=== PATIENT | male | born 1965 | race Caucasian/White ===

== ENCOUNTER 2023-11-27 10:14 | Inpatient (IN) | payer OTHER ==
[2023-11-27 11:19] LABS: Basophils % (A) 0 %; Eosinophils # (A) 0.1 k/uL (0-0.7); Eosinophils % (A) 0 %; HCT 40.3 % (39.0-53.0); HGB 12.9 gm/dL (13.0-17.5); Lymphocytes # (A) 0.5 k/uL (1.0-4.8); Lymphocytes % (A) 3 %; MCH 32.9 pg (25.0-35.0); MCHC 32.1 g/dL (31.0-37.0); MCV 102.6 fL (80.0-100.0); Macrocytosis Slight; Mean Platelet Volume 9.7; Monocytes # (A) 0.5 k/uL (0-1.0); Monocytes % (A) 2 %; Neutrophils # (A) 18.5 k/uL (1.3-7.7); Neutrophils % (A) 94 %; Platelet Count 322 k/uL (150-450); RBC 3.93 m/uL (4.30-5.90); RDW 14.1 % (11.5-15.5); WBC 19.6 k/uL (3.8-10.6)
[2023-11-27] MEDS: ACETAMINOPHEN TAB 500 MG TAB PO STA (11:25)
[2023-11-27] MEDS: IBUPROFEN 600 MG TAB PO STA (11:25)
--- NOTE | 2023-11-27 11:26 | XR ---
EXAMINATION TYPE: XR chest 2V DATE OF EXAM: 11/27/2023 COMPARISON: NONE HISTORY: Fever TECHNIQUE: Frontal and lateral views of the chest are obtained. FINDINGS: In the left upper lobe there is a 2.9 cm round masslike opacity. This could indicate a round focal pn eumonia but neoplastic mass is not excluded. The left hilum is prominent and the possibility of hilar mass or adenopathy should be further evaluated. There is a partially consolidative opacity in the left lower lobe with small left effusion likely ind icating a pneumonic infiltrate. Right lung is clear. The heart and pulmonary vasculature are normal. The osseous structures are grossly intact. IMPRESSION: 1. Left lower lobe consolidative infiltrate and small effusion consistent with pneumonia. 2. 2.9 cm focal rounded opacity left upper lobe for which neoplasm is not excluded. Left hilum is pro minent raising the question of hilar mass or adenopathy. Further evaluation with CT is indicated. [facility], Workstation: [id number] 11/27/2023 11:23 AM
[2023-11-27] MEDS: SODIUM CHLORIDE 0.9% 1,000 ML IV STA ×3 (11:27→13:28)
[2023-11-27] MEDS ORDERED: PNEUMONIA PROTOCOL UTILIZED 1 EACH MISC PO PRN (11:34)
[2023-11-27 12:35] LABS: ALT 75 U/L (4-49); AST 137 U/L (17-59); African American GFR (CKD) >90 (>60 ml/min/1.73 sqM); Albumin 2.6 g/dL (3.5-5.0); Alkaline Phosphatase 488 U/L (38-126); Anion Gap 10 mmol/L; Blood Urea Nitrogen 27 mg/dL (9-20); Calcium 7.8 mg/dL (8.4-10.2); Carbon Dioxide 18 mmol/L (22-30); Chloride 99 mmol/L (98-107); Glucose 201 mg/dL (74-99); Non-African American GFR(CKD) 83 (>60 ml/min/1.73 sqM); Potassium 4.1 mmol/L (3.5-5.1); Sodium 127 mmol/L (137-145); Total Bilirubin 4.7 mg/dL (0.2-1.3); Total Protein 5.1 g/dL (6.3-8.2)
[2023-11-27] MEDS ORDERED: LORazepam 2 MG/ML INJ IV PRN ×2 (13:04)
[2023-11-27] MEDS ORDERED: ONDANSETRON 4 MG/2 ML VIAL IVP PRN (13:05)
[2023-11-27] MEDS ORDERED: ACETAMINOPHEN TAB 325 MG TAB PO PRN (13:05)
[2023-11-27] MEDS ORDERED: IBUPROFEN 400 MG TAB PO PRN (13:05)
[2023-11-27] MEDS ORDERED: NALOXONE 0.4 MG/ML 1 ML VIAL IV PRN (13:05)
--- NOTE | 2023-11-27 13:08 | ED ---
General Adult HPI - General Chief complaint: Fever Stated complaint: Heart palpitations, loss of voice Time Seen by Provider: 11/27/23 10:45 Source: patient, RN notes reviewed, old records reviewed Mode of arrival: ambulatory Limitations: no limitations - History of Present Illness Initial comments: Patient is a 57-year-old male who presents emergency department complaining of a fever. Patient has also been complaining of loss of voice. Was found to be febrile in triage with a fever of 101.2. Was tachycardic to 129. Denies any significant cough or chest pain. Denies abdominal pain, nausea, vomiting. Is a daily drinker. Has not gone through alcohol withdrawals in the past. Denies urinary complaints. Has no other acute complaints at this time. Presents for further evaluation. Patient also smokes tobacco on a regular basis. States he has never gone through alcohol withdrawals. - Related Data Home Medications Medication Instructions Recorded Confirmed No Known Home Medications 11/27/23 11/27/23 Allergies Allergy/AdvReac Type Severity Reaction Status Date / Time No Known Allergies Allergy Verified 11/27/23 14:24 Review of Systems ROS Statement: Those systems with pertinent positive or pertinent negative responses have been documented in the HPI. Review of Systems: CONST: Endorses fever EYES: Denies blurry vision ENT: Denies nasal congestion C/V: Endorses tachycardia RESP: Denies shortness of breath GI: Denies abdominal pain : Denies dysuria SKIN: Denies rash. MSK: Denies joint pain. NEURO: Denies headache ROS Other: All systems not noted in ROS Statement are negative. Past Medical History Past Medical History: No Reported History History of Any Multi-Drug Resistant Organisms: None Reported Past Surgical History: No Surgical Hx Reported Past Psychological History: No Psychological Hx Reported Smoking Status: Current every day smoker Past Alcohol Use History: Daily Past Drug Use History: None Reported General Exam - General Exam Comments Initial Comments: General: Febrile. Tachycardic. HEAD: Normal with no signs of head trauma. EYES: PERRLA, EOMI, conjunctiva normal, no discharge. ENT: Hearing grossly intact, normal oropharynx. RESPIRATORY: Coarse breath sounds over the left lung field. C/V: Tachycardic with regular rhythm.. S1 and S2 auscultated, no edema, peripheral pulses 2+ and intact throughout ABD: Abd is soft, nontender, nondistended EXT: Normal range of motion, no obvious deformity SKIN: No rashes or lesions observed on exposed skin. NEURO: Alert and oriented x 4. No significant tremors or tongue fasciculations at this time. Limitations: no limitations Course Vital Signs 11/27/23 11/27/23 10:21 12:23 Temperature 101.2 F H 99.3 F Pulse Rate 129 H 118 H Respiratory 24 22 Rate Blood Pressure 138/91 138/100 O2 Sat by Pulse 97 94 L Oximetry Medical Decision Making - Medical Decision Making Was pt. sent in by a medical professional or institution (, PA, NURSERY NURSE, urgent care, hospital, or residential...) When possible be specific @ -No Did you speak to anyone other than the patient for history (EMS, parent, family, police, friend...)? What history was obtained from this source @ -No Did you review nursing and triage notes (agree or disagree)? Why? @ -I reviewed and agree with nursing and triage notes Were old charts reviewed (outside hosp., previous admission, EMS record, old EKG, old radiological studies, urgent care reports/EKG's, residential records)? Report findings @ -No old charts were reviewed Differential Diagnosis (chest pain, altered mental status, abdominal pain women, abdominal pain men, vaginal bleeding, weakness, fever, dyspnea, syncope, headache, dizziness, GI bleed, back pain, seizure, CVA, palpatations, mental health, musculoskeletal)? @ -Differential Fever: Pneumonia, viral URI, endocarditis, myocarditis, pericarditis, otitis, sinusitis, peritonsillar Abscess, retropharyngeal Abscess, epiglottitis, peritonitis, appendicitis, Olga cystitis, diverticulitis, hepatitis, colitis, UTI, PID, TOA, pyelonephritis, prostatitis, epididymitis, meningitis, encephalitis, pulmonary embolism, CVA, thyroid storm, pancreatitis, adrenal crisis, cavernous sinus thrombosis, this is not meant to be an all-inclusive list. EKG interpreted by me (3pts min.). @ -As above X-rays interpreted by me (1pt min.). @ -Chest x-ray reveals a left lower lobe pneumonia with pleural effusion likely from the pneumonic infiltrate. Patient also has concerning findings for a lung mass in the left upper lobe versus pneumonia. CT interpreted by me (1pt min.). @ -None done U/S interpreted by me (1pt. min.). @ -None done What testing was considered but not performed or refused? (CT, X-rays, U/S, labs)? Why? @ -None What meds were considered but not given or refused? Why? @ -None Did you discuss the management of the patient with other professionals (professionals i.e. DrKaron, PA, NURSERY NURSE, lab, RT, psych nurse, health social work professor, enterprise application administrator, teacher, recreation officer, case operator)? Give summary @ -Discussed with Dr. Gibbs who accepted the admission. Was smoking cessation discussed for >3mins.? @ -No Was critical care preformed (if so, how long)? @ -Yes, 38 minutes. Were there social determinants of health that impacted care today? How? (Homelessness, low income, unemployed, alcoholism, drug addiction, transportation, low edu. Level, literacy, decrease access to med. care, prison, rehab)? @ -No Was there de-escalation of care discussed even if they declined (Discuss DNR or withdrawal of care, Hospice)? DNR status @ -No What co-morbidities impacted this encounter? (DM, HTN, Smoking, COPD, CAD, Cancer, CVA, ARF, Chemo, Hep., AIDS, mental health diagnosis, sleep apnea, morbid obesity)? @ -None Was patient admitted / discharged? Hospital course, mention meds given and route, prescriptions, significant lab abnormalities, going to OR and other pertinent info. @ -Based on the patient's presentation and physical exam, I am concerned for in fectious etiology treated for the patient considering his high fever and tachycardia. May have mild alcohol withdrawal symptoms at this time however I am more concerned for infectious. He will be symptomatically treated with antipyretics and IV fluids. We will obtain infectious workup. Patient was in agreement this plan. EKG showed no signs of acute ischemia. Chest x-ray does show left-sided pneumonia as well as a possible left upper lung mass. Patient's labs remarkable for leukocytosis of 19.6 lactic acidosis of 4.3, mild hyponatremia of 127. Patient also has some elevated LFTs and alk phos likely chronic secondary to patient's chronic alcohol use. No prior labs for comparison. Patient met sepsis criteria at 1133. Patient was placed on Rocephin and azithromycin for septic pneumonia. Blood culture obtained and sent. Patient will receive 1 L fluid bolus and we will continue with an additional liter as well as IV maintenance fluids to complete the 30 cc/kg fluid requirement. Vital signs are within acceptable limits. Patient's fever broke. I updated the patient. He initially refuses admission. I did heavily advise admission and informed him of the serious of his condition. He agreed to think about it. On reevaluation, he did consent to admission at this time. We will continue with admission for the IV antibiotics. He does have the nonspecific elevations in the hepatobiliary labs however I do believe this is likely chronic from chronic alcohol use and we will obtain screening ultrasound of the gallbladder at this time. He was in agreement this plan. I spoke with the admitting provider, Dr. Gibbs who accepted the admission. Gallbladder ultrasound still pending at time of admission. Pulmonology consulted for the pneumonia as well as the mass on x-ray. There is concern for early alcohol withdrawals and patient was placed on CIWA protocol. Undiagnosed new problem with uncertain prognosis? @ -No Drug Therapy requiring intensive monitoring for toxicity (Heparin, Nitro, Insulin, Cardizem)? @ -No Were any procedures done? @ -No Diagnosis/symptom? @ -Sepsis secondary to pneumonia, lung mass, alcohol withdrawals Acute, or Chronic, or Acute on Chronic? @ -Acute Uncomplicated (without systemic symptoms) or Complicated (systemic symptoms)? @ -Complicated Side effects of treatment? @ -No Exacerbation, Progression, or Severe Exacerbation? @ -No Poses a threat to life or bodily function? How? (Chest pain, [place], [place], pneumonia, PE, COPD, DKA, ARF, appy, cholecystitis, CVA, Diverticulitis, Homicidal, Suicidal, threat to staff... and all critical care pts) @ -Yes - Lab Data Result diagrams: 11/27/23 11:12 11/27/23 12:11 Lab Results 11/27/23 11/27/23 11/27/23 Range/Units 11:12 11:12 11:12 WBC 19.6 H (3.8-10.6) k/uL RBC 3.93 L (4.30-5.90) m/uL Hgb 12.9 L (13.0-17.5) gm/dL Hct 40.3 (39.0-53.0) % MCV 102.6 H (80.0-100.0) fL MCH 32.9 (25.0-35.0) pg MCHC 32.1 (31.0-37.0) g/dL RDW 14.1 (11.5-15.5) % Plt Count 322 (150-450) k/uL MPV 9.7 Neutrophils % 94 % Lymphocytes % 3 % Monocytes % 2 % Eosinophils % 0 % Basophils % 0 % Neutrophils # 18.5 H (1.3-7.7) k/uL Lymphocytes # 0.5 L (1.0-4.8) k/uL Monocytes # 0.5 (0-1.0) k/uL Eosinophils # 0.1 (0-0.7) k/uL Basophils # 0.0 (0-0.2) k/uL Macrocytosis Slight Sodium (137-145) mmol/L Potassium (3.5-5.1) mmol/L Chloride (98-107) mmol/L Carbon Dioxide (22-30) mmol/L Anion Gap mmol/L BUN (9-20) mg/dL Creatinine (0.66-1.25) mg/dL Est GFR (CKD-EPI)AfAm (>60 ml/min/1.73 sqM) Est GFR (CKD-EPI)NonAf (>60 ml/min/1.73 sqM) Glucose (74-99) mg/dL Lactic Ac Sepsis Rflx Plasma Lactic Acid George 4.3 H* (0.7-2.0) mmol/L Calcium (8.4-10.2) mg/dL Total Bilirubin (0.2-1.3) mg/dL AST (17-59) U/L ALT (4-49) U/L Alkaline Phosphatase (38-126) U/L Total Protein (6.3-8.2) g/dL Albumin (3.5-5.0) g/dL Influenza Type A (PCR) (Not Detectd) Influenza Type B (PCR) (Not Detectd) RSV (PCR) (Not Detectd) SARS-CoV-2 (PCR) (Not Detectd) Group A Strep (PCR) NOT DETECTED (Not Detectd) 11/27/23 11/27/23 11/27/23 Range/Units 11:12 11:39 12:11 WBC (3.8-10.6) k/uL RBC (4.30-5.90) m/uL Hgb (13.0-17.5) gm/dL Hct (39.0-53.0) % MCV (80.0-100.0) fL MCH (25.0-35.0) pg MCHC (31.0-37.0) g/dL RDW (11.5-15.5) % Plt Count (150-450) k/uL MPV Neutrophils % % Lymphocytes % % Monocytes % % Eosinophils % % Basophils % % Neutrophils # (1.3-7.7) k/uL Lymphocytes # (1.0-4.8) k/uL Monocytes # (0-1.0) k/uL Eosinophils # (0-0.7) k/uL Basophils # (0-0.2) k/uL Macrocytosis Sodium 127 L (137-145) mmol/L Potassium 4.1 (3.5-5.1) mmol/L Chloride 99 (98-107) mmol/L Carbon Dioxide 18 L (22-30) mmol/L Anion Gap 10 mmol/L BUN 27 H (9-20) mg/dL Creatinine 1.00 (0.66-1.25) mg/dL Est GFR (CKD-EPI)AfAm >90 (>60 ml/min/1.73 sqM) Est GFR (CKD-EPI)NonAf 83 (>60 ml/min/1.73 sqM) Glucose 201 H (74-99) mg/dL Lactic Ac Sepsis Rflx Y Plasma Lactic Acid George (0.7-2.0) mmol/L Calcium 7.8 L (8.4-10.2) mg/dL Total Bilirubin 4.7 H (0.2-1.3) mg/dL AST 137 H (17-59) U/L ALT 75 H (4-49) U/L Alkaline Phosphatase 488 H (38-126) U/L Total Protein 5.1 L (6.3-8.2) g/dL Albumin 2.6 L (3.5-5.0) g/dL Influenza Type A (PCR) Not Detected (Not Detectd) Influenza Type B (PCR) Not Detected (Not Detectd) RSV (PCR) Not Detected (Not Detectd) SARS-CoV-2 (PCR) Not Detected (Not Detectd) Group A Strep (PCR) (Not Detectd) - EKG Data -: EKG Interpreted by Me EKG Comments: 12-lead Electrocardiogram Interpretation Note EKG was reviewed and interpreted by myself. 12-lead ECG performed at 1120 is interpreted by me as revealing tachycardia at a rate of 127 beats per minute. [place] is normal. [place] interval is 169 ms, QRS duration is 91 ms, QTc is 357 ms.. There were no ST or T wave abnormalities to suggest myocardial ischemia or injury. R wave progression across the precordium was satisfactory. By my interpretation this EKG is non-diagnostic for acute ischemia. Critical Care Time Critical Care Time: Yes Total Critical Care Time: 38 Disposition Clinical Impression: Sepsis, Pneumonia, Lung mass, Alcohol withdrawal Disposition: ADMITTED IP TO THIS [facility] Condition: Serious Time of Disposition: 13:00
[2023-11-27] MEDS: LORazepam 2 MG/ML INJ IV STA (13:22)
[2023-11-27] MEDS: THIAMINE 100 MG/ML 2 ML VIAL IM STA (13:30)
[2023-11-27] MEDS: AZITHROMYCIN 500 MG in SODIUM CHLORIDE 0.9% 250 ML IVPB STA (13:30)
--- NOTE | 2023-11-27 14:23 | P.HPIM ---
History of Present Illness This is a pleasant 57 years old male with past medical history of multiple medical problems, he has a history of alcohol use disorder is non-smoker He presents because of fever and sweating Of 1 day duration. He is complaining from little dyspnea but states he has been coughing with little yellow phlegm for about 1 to 2 weeks He denies abdominal pain vomiting or diarrhea, no urinary complaints, no headache dizziness weakness or numbness He smokes 1 pack/day and he was counseled to quit but he does not want to quit and he denies nicotine patch. He drinks 7 to 8 cans of beer of 12 ounces each day. He uses marijuana at times He denies current signs symptoms of depression, suicidal or homicidal ideation On admission he has been having fever 101.2, he is tachycardic 118, he is breathing around 22-24, he was saturating 94% on room air He has leukocytosis of 19,000, hemoglobin 12.9, sodium 127, liver enzymes mildly elevated but bilirubin is 4.7 Troponin is negative, INR is unremarkable Influenza A and type B, RSV, SARS (coronavirus) are and detected Group B streptococcus is negative Chest x-ray reviewed by myself and per radiologist shows 2.9 cm left upper lung nodule with left hilar fullness suspicious for neoplasm versus pneumonia Review of Systems Review of systems CONSTITUTIONAL: No fever, no malaise, no fatigue. HEENT: No recent visual problems or hearing problems. Denied any sore throat. CARDIOVASCULAR: No orthopnea, PND, no palpitations, no syncope. PULMONARY: No chest wall tenderness, no hemoptysis. GASTROINTESTINAL: No diarrhea, no nausea, no vomiting, no abdominal pain. Normoactive bowel sounds. NEUROLOGICAL: No headaches, no weakness, no numbness. HEMATOLOGICAL: Denies any bleeding or petechiae. GENITOURINARY: Denies any burning micturition, frequency, or urgency. MUSCULOSKELETAL/RHEUMATOLOGICAL: Denies any joint pain, swelling, or any muscle pain. ENDOCRINE: Denies any polyuria or polydipsia. Past Medical History Past Medical History: No Reported History History of Any Multi-Drug Resistant Organisms: None Reported Past Surgical History: No Surgical Hx Reported Past Psychological History: No Psychological Hx Reported Smoking Status: Current every day smoker Past Alcohol Use History: Daily Past Drug Use History: None Reported Medications and Allergies Allergies Allergy/AdvReac Type Severity Reaction Status Date / Time No Known Allergies Allergy Verified 11/27/23 10:24 Physical Exam Vitals: Vital Signs Temp Pulse Resp BP Pulse Ox 11/27/23 12:23 99.3 F 118 H 22 138/100 94 L 11/27/23 10:21 101.2 F H 129 H 24 138/91 97 Intake and Output 11/26/23 11/27/23 11/27/23 22:59 06:59 14:59 Other: Weight 89.811 kg -GENERAL: The patient is alert and oriented x3, not in any acute distress. Well developed, well nourished. HEENT: Pupils are round and equally reacting to light. EOMI. No scleral icterus. No conjunctival pallor. Normocephalic, atraumatic. No pharyngeal erythema. No thyromegaly. CARDIOVASCULAR: S1 and S2 present. No murmurs, rubs, or gallops. PULMONARY: Chest is clear to auscultation, no wheezing , no crackles. ABDOMEN: Soft, nontender, nondistended, normoactive bowel sounds. No palpable organomegaly. MUSCULOSKELETAL: No joint swelling or deformity. EXTREMITIES: No cyanosis, clubbing, or pedal edema. NEUROLOGICAL: Gross neurological examination did not reveal any focal deficits. SKIN: No rashes. no petechiae. Results CBC & Chem 7: 11/27/23 11:12 11/27/23 12:11 Labs: Abnormal Lab Results - Last 24 Hours (Table) 11/27/23 11/27/23 11/27/23 Range/Units 11:12 11:12 12:11 WBC 19.6 H (3.8-10.6) k/uL RBC 3.93 L (4.30-5.90) m/uL Hgb 12.9 L (13.0-17.5) gm/dL MCV 102.6 H (80.0-100.0) fL Neutrophils # 18.5 H (1.3-7.7) k/uL Lymphocytes # 0.5 L (1.0-4.8) k/uL Sodium 127 L (137-145) mmol/L Carbon Dioxide 18 L (22-30) mmol/L BUN 27 H (9-20) mg/dL Glucose 201 H (74-99) mg/dL Plasma Lactic Acid George 4.3 H* (0.7-2.0) mmol/L Calcium 7.8 L (8.4-10.2) mg/dL Total Bilirubin 4.7 H (0.2-1.3) mg/dL AST 137 H (17-59) U/L ALT 75 H (4-49) U/L Alkaline Phosphatase 488 H (38-126) U/L Total Protein 5.1 L (6.3-8.2) g/dL Albumin 2.6 L (3.5-5.0) g/dL Assessment and Plan Assessment: Sepsis secondary to community-acquired pneumonia with left upper lobe nodule/mass 2.9 cm, cannot rule out neoplasm especially with there is fullness in the left hilum Hypovolemic hyponatremia Transaminitis with elevated bilirubin, rule out hepatobiliary disease. However most likely this is due to alcoholic transaminitis Nicotine dependence Alcohol use disorder at risk of alcohol withdrawal Substance abuse with marijuana Plan: Continue Zithromax and ceftriaxone Follow-up culture results Continue with CIWA and thiamine pulmonary consult Continue with gentle hydration 100 mL/h, he received several boluses in the ER Labs and medication were reviewed.. Continue same treatment. Continue with s ymptomatic treatment. Resume home medication. Monitor labs and vitals. DVT and GI prophylaxis. Further recommendations as per clinical course of the patient DVT prophylaxis: Subcutaneous heparin GI Prophylaxis: Pepcid PT/OT: Pending Prognosis is guarded
[2023-11-27] MEDS: SODIUM CHLORIDE 0.9% 1,000 ML IV SCH (15:16)
--- NOTE | 2023-11-27 15:50 | US ---
EXAMINATION TYPE: US gallbladder DATE OF EXAM: 11/27/2023 COMPARISON: NONE CLINICAL INDICATION: Male, 57 years old with history of pain; Hx alcohol abuse per pt. Pt c/o recent loss of voice, fever TECHNIQUE: Multiple sonographic images of the right upper quadrant are obtained. FINDINGS: EXAM MEASUREMENTS: Liver Length: 23.9 cm Gallbladder Wall: 0.3 cm CBD: 0.3 cm Right Kidney: 10.3 x 6.1 x 5.1 cm [employer] NOTES: Pancreas: Obscured by bowel gas Liver: Many nodular masses noted throughout both lobes of the liver Gallbladder: No stones seen Evidence for sonographic Barton's sign: No CBD: Appears wnl as visualized Right Kidney: wnl Small amount of ascites noted within the right abdomen near the liver IMPRESSION: Enlarged liver containing multiple masses, highly concerning for metastases. [facility], , 11/27/2023 3:48 PM
[2023-11-27] MEDS ORDERED: RX INFO: IV CONTRAST WAS GIVEN 1 EACH MISC MISCELLANE PRN (16:33)
[2023-11-27] MEDS: methylPREDNISolone SOD SUCCI 125 MG/2 ML VIAL IV SCH (18:44)
--- NOTE | 2023-11-27 18:50 | P.CNPUL ---
History of Present Illness Consult date: 11/27/23 Reason for consult: dyspnea, COPD, pneumonia History of present illness: 57-year-old male patient, presented to the emergency department because of fever and sweating and shortness of breath. He also was having cough with yellow sputum production for the past few days. No nausea. No vomiting. Abdominal pain. He is a chronic smoker. He also drinks around 7 to 8, 12 ounce cans beers on a daily basis and he smokes marijuana occasionally. In the emergency, the patient was found to be febrile with a Tmax of 101.2. He was tachycardic and tachypneic with a pulse ox of 94% room air oxygen. White cell count was at 19. The viral screen showed negative influenza RSV and COVID-19 and the strep screen was also negative. The patient's chest x-ray showed a area of left lower lobe consolidation with a small effusion. There was another 2.9 cm focus in the left upper lobe that was concerning for neoplasm and based on the CAT scan of the chest was recommended. The patient is currently on a combination of Rocephin and Zithromax. Patient is on normal citrate of 130 cc an hour. Calm and comfortable. Hemodynamically stable. Still on room air oxygen with a pulse ox of 95%. The patient is a chronic smoker and history of smoking at the young age and the patient smokes around 1 pack of cigarettes on a daily basis. Review of Systems Constitutional: Reports fatigue Eyes: denies as per HPI, denies blurred vision, denies bulging eye, denies decreased vision, denies diplopia, denies discharge, denies dry eye, denies irritation, denies itching, denies pain, denies photophobia, denies loss of peripheral vision, denies loss of vision, denies tunnel vision/blind spots Ears: deny: decreased hearing, ear discharge, earache, tinnitus Ears, nose, mouth and throat: Reports as per HPI Breasts: absent: as per HPI, gynecomastia Cardiovascular: Reports dyspnea on exertion Respiratory: Reports dyspnea, Reports wheezing Gastrointestinal: Reports as per HPI Genitourinary: Reports as per HPI Musculoskeletal: Reports as per HPI Musculoskeletal: absent: ankle pain, ankle stiffness, ankle swelling, as per HPI, elbow pain, elbow stiffness, elbow swelling, foot pain, foot stiffness, foot swelling, hand pain, hand stiffness, hand swelling, hip pain, hip stiffness, hip swelling, knee pain, knee stiffness, knee swelling, shoulder pain, shoulder stiffness, shoulder swelling, wrist pain, wrist stiffness, wrist swelling Integumentary: Reports as per HPI Neurological: Reports as per HPI Psychiatric: Reports as per HPI Endocrine: Reports as per HPI Hematologic/Lymphatic: Reports as per HPI Allergic/Immunologic: Reports as per HPI Past Medical History Past Medical History: No Reported History History of Any Multi-Drug Resistant Organisms: None Reported Past Surgical History: No Surgical Hx Reported Past Psychological History: No Psychological Hx Reported Smoking Status: Current every day smoker Past Alcohol Use History: Daily Past Drug Use History: None Reported Medications and Allergies Home Medications Medication Instructions Recorded Confirmed Type No Known Home Medications 11/27/23 11/27/23 History Allergies Allergy/AdvReac Type Severity Reaction Status Date / Time No Known Allergies Allergy Verified 11/27/23 14:24 Physical Exam Vitals: Vital Signs Temp Pulse Resp BP Pulse Ox 11/27/23 15:17 97.6 F 82 16 120/90 95 11/27/23 12:23 99.3 F 118 H 22 138/100 94 L 11/27/23 10:21 101.2 F H 129 H 24 138/91 97 Intake and Output 11/27/23 11/27/23 11/27/23 06:59 14:59 22:59 Other: Weight 89.811 kg The patient appeared well nourished and normally developed. Vital signs as documented. Patient currently on room air oxygen, breathing is mildly labored Head exam is unremarkable. No scleral icterus or corneal arcus noted. Neck is without jugular venous distension, thyromegaly, or carotid bruits. Carotid upstrokes are brisk bilaterally. Lungs are diminished breath sound bilaterally along with diffuse expiratory wheezes throughout the lung torres and prolongation of the exhalation phase of breathing Cardiac exam reveals the PMI to be normally sized and situated. Rhythm is regular. First and second heart sounds normal. No murmurs, rubs or gallops. Abdominal exam reveals normal bowel sounds, no masses, no organomegaly and no aortic enlargement. Extremities are nonedematous and both femoral and pedal pulses are normal. Examination of the skin revealed no evidence of significant rashes, suspicious appearing nevi or other concerning lesions. Neurologically, the patient is awake and alert and the patient does not have any focal neurological deficit. Cranial nerves are essentially intact. Results - Laboratory Findings CBC and BMP: 11/27/23 11:12 11/27/23 12:11 Abnormal lab findings: Abnormal Labs 11/27/23 11/27/23 11/27/23 11:12 11:12 12:11 WBC 19.6 H RBC 3.93 L Hgb 12.9 L MCV 102.6 H Neutrophils # 18.5 H Lymphocytes # 0.5 L Sodium 127 L Carbon Dioxide 18 L BUN 27 H Glucose 201 H Plasma Lactic Acid George 4.3 H* Calcium 7.8 L Total Bilirubin 4.7 H AST 137 H ALT 75 H Alkaline Phosphatase 488 H Total Protein 5.1 L Albumin 2.6 L 11/27/23 14:23 WBC RBC Hgb MCV Neutrophils # Lymphocytes # Sodium Carbon Dioxide BUN Glucose Plasma Lactic Acid George 2.7 H* Calcium Total Bilirubin AST ALT Alkaline Phosphatase Total Protein Albumin - Diagnostic Findings Chest x-ray: image reviewed CT scan - chest: image reviewed Assessment and Plan Plan: Acute left lower lobe pneumonia, concern for underlying malignancy as the patient has some hilar prominence in the left upper lobe pulmonary nodule as noted on the chest x-ray. Will need further characterization of those abnormalities by CAT scan of the chest. Left lower lobe pulmonary nodule measuring 2.9 cm in size, will need a CAT scan of the chest for further characterization acute COPD exacerbation acute on chronic shortness of breath secondary to above Acute febrile illness secondary to above Acute leukocytosis Acute hypochloremic hyponatremia, could be SIADH versus alcohol related hypovolemic hyponatremia Acute lactic acidosis, improving and lactic acid level has dropped from 4.3 down to 2.7 Acute transaminitis secondary to alcoholism History of alcohol abuse Plan Monitor the patient's oxygenation and titrate oxygen flow to maintain saturation above 90% Sputum Gram stain and culture Blood culture DuoNeb nebulized treatments 4 times a day IV Solu-Medrol 60 mg every 6 hours Broad-spectrum antibiotic coverage with Zosyn and Zithromax CAT scan of the chest to characterize left upper lobe pulmonary nodule Smoking cessation counseling Monitor LFTs Ultrasound the liver watch for any signs of delirium tremens Continue IV fluids and monitor electrolytes Will follow
[2023-11-27] MEDS: FAMOTIDINE 20 MG/2 ML VIAL IV SCH (20:14)
[2023-11-27] MEDS: HEPARIN SODIUM,PORCINE 5,000 UNIT/ML 1 ML VIAL SQ SCH (20:17)
--- NOTE | 2023-11-27 21:24 | CT ---
EXAMINATION TYPE: CT chest w con CT DLP: 385.5 mGycm, Automated exposure control for dose reduction was used. DATE OF EXAM: 11/27/2023 9:11 PM COMPARISON: 11/01/2023 CLINICAL INDICATION: Male, 57 years old with history of history of mass ; PHH, chest mass TECHNIQUE: Multiple axial images were obtained through the chest. Sagittal and coronal reformats were created for review. MIP was performed on a separate workstation. Contrast used:100 mL of Isovue 300 with IV Contrast (None if empty) Oral contrast used: (None if empty) FINDINGS: LUNGS/ PLEURA: Scattered pulmonary nodules are seen throughout the lungs largest in the left upper lo be measuring up to 24 mm. Consolidation changes in the left lung base.r additional pulmonary nodules including right lower lung measuring 8 r right upper lung measuring 6 mm right middle lobe measuring 9 mm anterior lower right lower lobe measuring 13 mm AIRWAY: Patent and unremarkable. HEART: Size within normal limits. MEDIASTINUM: Conglomerate mass along the left perihilar region extending into the mediastinum narrowi ng the left pulmonary artery. Scattered mediastinal lymph nodes examples include right high paratracheal measuring 16 mm,right low paratracheal measuring 20 mm in short axis subcarinal measuring 16 mm in short axis. AP window measur ing 38 x 44 mm, and 10 L lymph node measuring 46 x 44 mm. VASCULATURE: No aortic aneurysm. Narrowing of the left pulmonary artery is secondary to conglomerate lymphadenopathy. MUSCULOSKELETAL: No acute osseous abnormalities, abnormal right rib 7 mass with expansion of the jama ex and cortical thinning. SOFT TISSUES/LYMPH NODES: Unremarkable. LOWER NECK: No significant findings. UPPER ABDOMEN: Diffuse metastatic disease throughout the liver there are greater than 20 lesions. Exa mple includes 50 mm lesion in segment 4A. trace abdominal ascites. Possible gastrohepatic ligament ly mph node measuring up to 34 mm. Additional lymph node near the gastroesophageal junction measuring 15 mm in short axis. IMPRESSION: 1. Airspace consolidation in the left lower lung correlate for superimposed infection. 2. Evidence of metastatic disease with lymphadenopathy within the mediastinum, scattered pulmonary n odules and at least 20 lesions in the liver and upper abdominal lymph nodes. 3. There is at least one osseous lesion in the right rib #7. The rib lesion may represent pathologic fracture versus incompletely fused nonpathologic fracture. Correlate with history of trauma to the r ight chest wall. Attention follow-up. 4. Narrowing of the left pulmonary artery of at least 50% secondary to conglomerate lymphadenopathy. 5. Airspace consolidation in the left lower lung correlate for superimposed infection. [facility], Workstation: [id number], 11/27/2023 9:22 PM
[2023-11-28 01:54] LABS: Appearance,Urine Cloudy (Clear); Bacteria,Urine Rare /hpf; Bilirubin,Urine 1+ (Negative); Blood,Urine Moderate (Negative); Cellular Casts,Urine 1 /lpf (0); Color,Urine Yellow; Glucose,Urine (UA) Negative (Negative); Granular Casts,Urine 1 /lpf (0); Hyaline Casts,Urine 23 /lpf (0-2); Ketones,Urine Negative (Negative); Leukocyte Esterase,Urine Negative (Negative); Mucus,Urine Rare /hpf; Nitrite,Urine Negative (Negative); PH, Urine 5.5 (5.0-8.0); Protein,Urine 1+ (Negative); RBC,Urine 3 /hpf (0-5); Specific Gravity,Urine 1.028 (1.001-1.035); Squamous Epithelial Cell,Urine <1 /hpf (0-4); WBC,Urine 15 /hpf (0-5)
[2023-11-28 06:40] LABS: Basophils % (A) 0 %; Eosinophils % (A) 0 %; HCT 38.8 % (39.0-53.0); HGB 12.4 gm/dL (13.0-17.5); Lymphocytes # (A) 0.6 k/uL (1.0-4.8); Lymphocytes % (A) 3 %; MCH 33.4 pg (25.0-35.0); MCV 104.2 fL (80.0-100.0); Macrocytosis Slight; Mean Platelet Volume 9.6; Monocytes # (A) 0.4 k/uL (0-1.0); Monocytes % (A) 2 %; Neutrophils # (A) 17.5 k/uL (1.3-7.7); Neutrophils % (A) 94 %; Platelet Count 307 k/uL (150-450); RBC 3.73 m/uL (4.30-5.90); RDW 14.2 % (11.5-15.5); WBC 18.6 k/uL (3.8-10.6)
[2023-11-28 06:56] LABS: ALT 77 U/L (4-49); AST 98 U/L (17-59); African American GFR (CKD) 61 (>60 ml/min/1.73 sqM); Albumin 2.4 g/dL (3.5-5.0); Alkaline Phosphatase 439 U/L (38-126); Anion Gap 8 mmol/L; Blood Urea Nitrogen 37 mg/dL (9-20); Carbon Dioxide 19 mmol/L (22-30); Chloride 102 mmol/L (98-107); Glucose 97 mg/dL (74-99); Non-African American GFR(CKD) 53 (>60 ml/min/1.73 sqM); Potassium 3.9 mmol/L (3.5-5.1); Sodium 129 mmol/L (137-145); Total Bilirubin 3.7 mg/dL (0.2-1.3); Total Protein 4.9 g/dL (6.3-8.2)
[2023-11-28] MEDS: AZITHROMYCIN 500 MG TAB PO SCH (08:25)
[2023-11-28] MEDS: THIAMINE 100 MG TAB PO SCH (08:26)
--- NOTE | 2023-11-28 08:40 | P.PN ---
Subjective This is a pleasant 57 years old male with past medical history of multiple medical problems, he has a history of alcohol use disorder is non-smoker He presents because of fever and sweating Of 1 day duration. He is complaining from little dyspnea but states he has been coughing with little yellow phlegm for about 1 to 2 weeks He denies abdominal pain vomiting or diarrhea, no urinary complaints, no headache dizziness weakness or numbness He smokes 1 pack/day and he was counseled to quit but he does not want to quit and he denies nicotine patch. He drinks 7 to 8 cans of beer of 12 ounces each day. He uses marijuana at times He denies current signs symptoms of depression, suicidal or homicidal ideation On admission he has been having fever 101.2, he is tachycardic 118, he is breathing around 22-24, he was saturating 94% on room air He has leukocytosis of 19,000, hemoglobin 12.9, sodium 127, liver enzymes mildly elevated but bilirubin is 4.7 Troponin is negative, INR is unremarkable Influenza A and type B, RSV, SARS (coronavirus) are and detected Group B streptococcus is negative Chest x-ray reviewed by myself and per radiologist shows 2.9 cm left upper lung nodule with left hilar fullness suspicious for neoplasm versus pneumonia 11/27 Patient lying in bed fully awake and oriented, no respiratory symptoms while he is at rest. He got some dyspnea when he started talking heavily. No coughing no chest pain No abdominal pain no vomiting no diarrhea No significant alcohol withdrawal symptoms Vitals are stable Patient is made aware that he has been treated for pneumonia and also he has multiple nodules in the lungs of the liver suspicious for metastatic disease. Patient denies previous history of cancer. No urinary complaint He is hemodynamically stable. Leukocytosis improving slightly down to 18,000, hemoglobin is 12.4 stable Sodium is slightly better 127 up to 129 Creatinine went up 1.0 up to 1.4 Liver enzymes slightly elevated with bilirubin 3.7. Lactic acid back to reference range Urinalysis not suspicious of infection He has CT of the chest today showing left lower lobe infiltrate suspicious for pneumonia with metastatic disease with lymphadenopathy of the mediastinum and multiple lung and liver nodules, more than 20 liver nodules. Also he has osseous lesion of the fourth rib which could be also pathological fracture. Currently he is getting normal saline at 100 mL/h Also IV Solu-Medrol 60 mg/h We will send urine analysis and check a bladder scan Discussed with the staff Review of systems CONSTITUTIONAL: No fever, no malaise, no fatigue. HEENT: No recent visual problems or hearing problems. Denied any sore throat. CARDIOVASCULAR: No orthopnea, PND, no palpitations, no syncope. PULMONARY: No shortness of breath, no cough, no hemoptysis. GASTROINTESTINAL: No diarrhea, no nausea, no vomiting, no abdominal pain. Normoactive bowel sounds. NEUROLOGICAL: No headaches, no weakness, no numbness. HEMATOLOGICAL: Denies any bleeding or petechiae. GENITOURINARY: Denies any burning micturition, frequency, or urgenc Active Medications Generic Name Dose Route Start Last Admin Trade Name Freq PRN Reason Stop Dose Admin Acetaminophen 650 mg 11/27/23 13:05 Acetaminophen Tab 325 Mg Tab PO Q6HR PRN Mild Pain or Fever > 100.5 Azithromycin 500 mg 11/28/23 09:00 11/28/23 08:25 Azithromycin 500 Mg Tab PO 11/29/23 09:01 500 mg DAILY ROSIE Administration Protocol Famotidine 20 mg 11/27/23 21:00 11/28/23 08:27 Famotidine 20 Mg/2 Ml Vial IV 20 mg Q12HR ROSIE Administration Heparin Sodium (Porcine) 5,000 unit 11/27/23 21:00 11/28/23 08:26 Heparin Sodium,Porcine 5,000 Unit/Ml 1 Ml Vial SQ 5,000 unit Q12HR ROSIE Administration Ceftriaxone Sodium 2 gm/ 50 mls @ 100 mls/hr 11/28/23 09:00 11/28/23 08:25 Sodium Chloride IVPB 12/01/23 09:29 100 mls/hr Q24HR ROISE Administration Protocol Sodium Chloride 1,000 mls @ 100 mls/hr 11/27/23 13:45 11/28/23 04:09 Saline 0.9% IV 100 mls/hr .Q10H ROSIE Administration Lorazepam 1 mg 11/27/23 13:04 Lorazepam 2 Mg/Ml Inj IV Q1HR PRN CIWA 10 to 15 Lorazepam 1 mg 11/27/23 13:04 Lorazepam 2 Mg/Ml Inj IV Q2HR PRN CIWA 8 or 9 Lorazepam 2 mg 11/27/23 13:04 Lorazepam 2 Mg/Ml Inj IV 11/29/23 13:04 Q10M PRN CIWA 16 or higher Methylprednisolone Sodium Succinate 60 mg 11/27/23 18:00 11/28/23 07:21 Methylprednisolone Sod Succi 125 Mg/2 Ml Vial IV 60 mg Q6HR ROSIE Administration Miscellaneous Information 1 each 11/27/23 11:34 Pneumonia Protocol Utilized 1 Each Misc PO ONCE PRN Per Protocol Miscellaneous Information 1 each 11/27/23 16:33 Rx Info: Iv Contrast Was Given 1 Each Misc MISCELLANE 11/29/23 16:33 DAILY PRN Per Protocol Naloxone HCl 0.2 mg 11/27/23 13:05 Naloxone 0.4 Mg/Ml 1 Ml Vial IV Q2M PRN Opioid Reversal Ondansetron HCl 4 mg 11/27/23 13:05 Ondansetron 4 Mg/2 Ml Vial IVP Q8HR PRN Nausea And Vomiting Thiamine HCl 100 mg 11/28/23 09:00 11/28/23 08:26 Thiamine 100 Mg Tab PO 100 mg DAILY ROSIE Administration Objective - Vital Signs Vital signs: Vital Signs Temp 97.5 F L 11/27/23 20:18 Pulse 87 11/28/23 07:16 Resp 18 11/28/23 07:16 BP 124/88 11/28/23 07:16 Pulse Ox 95 11/28/23 07:16 FiO2 Intake & Output 11/27/23 11/28/23 11/28/23 18:59 06:59 18:59 Weight 89.811 kg - Exam GENERAL: The patient is alert and oriented x3, not in any acute distress. Well developed, well nourished. HEENT: Pupils are round and equally reacting to light. EOMI. No scleral icterus. No conjunctival pallor. Normocephalic, atraumatic. No pharyngeal erythema. No thyromegaly. CARDIOVASCULAR: S1 and S2 present. No murmurs, rubs, or gallops. PULMONARY: Chest is clear to auscultation, no wheezing , no crackles. ABDOMEN: Soft, nontender, nondistended, normoactive bowel sounds. No palpable organomegaly. MUSCULOSKELETAL: No joint swelling or deformity. EXTREMITIES: No cyanosis, clubbing, or pedal edema. NEUROLOGICAL: Gross neurological examination did not reveal any focal deficits. SKIN: No rashes. no petechiae. - Labs CBC & Chem 7: 11/28/23 06:21 11/28/23 06:21 Labs: Abnormal Lab Results - Last 24 Hours (Table) 11/27/23 11/27/23 11/27/23 Range/Units 11:12 11:12 12:11 WBC 19.6 H (3.8-10.6) k/uL RBC 3.93 L (4.30-5.90) m/uL Hgb 12.9 L (13.0-17.5) gm/dL Hct (39.0-53.0) % MCV 102.6 H (80.0-100.0) fL Neutrophils # 18.5 H (1.3-7.7) k/uL Lymphocytes # 0.5 L (1.0-4.8) k/uL Sodium 127 L (137-145) mmol/L Carbon Dioxide 18 L (22-30) mmol/L BUN 27 H (9-20) mg/dL Creatinine (0.66-1.25) mg/dL Glucose 201 H (74-99) mg/dL Plasma Lactic Acid George 4.3 H* (0.7-2.0) mmol/L Calcium 7.8 L (8.4-10.2) mg/dL Total Bilirubin 4.7 H (0.2-1.3) mg/dL AST 137 H (17-59) U/L ALT 75 H (4-49) U/L Alkaline Phosphatase 488 H (38-126) U/L Total Protein 5.1 L (6.3-8.2) g/dL Albumin 2.6 L (3.5-5.0) g/dL Urine Protein (Negative) Urine Blood (Negative) Urine Bilirubin (Negative) Urine WBC (0-5) /hpf Urine Bacteria (None) /hpf Hyaline Casts (0-2) /lpf Urine Mucus (None) /hpf 11/27/23 11/28/23 11/28/23 Range/Units 14:23 01:43 06:21 WBC 18.6 H (3.8-10.6) k/uL RBC 3.73 L (4.30-5.90) m/uL Hgb 12.4 L (13.0-17.5) gm/dL Hct 38.8 L (39.0-53.0) % MCV 104.2 H (80.0-100.0) fL Neutrophils # 17.5 H (1.3-7.7) k/uL Lymphocytes # 0.6 L (1.0-4.8) k/uL Sodium (137-145) mmol/L Carbon Dioxide (22-30) mmol/L BUN (9-20) mg/dL Creatinine (0.66-1.25) mg/dL Glucose (74-99) mg/dL Plasma Lactic Acid George 2.7 H* (0.7-2.0) mmol/L Calcium (8.4-10.2) mg/dL Total Bilirubin (0.2-1.3) mg/dL AST (17-59) U/L ALT (4-49) U/L Alkaline Phosphatase (38-126) U/L Total Protein (6.3-8.2) g/dL Albumin (3.5-5.0) g/dL Urine Protein 1+ H (Negative) Urine Blood Moderate H (Negative) Urine Bilirubin 1+ H (Negative) Urine WBC 15 H (0-5) /hpf Urine Bacteria Rare H (None) /hpf Hyaline Casts 23 H (0-2) /lpf Urine Mucus Rare H (None) /hpf 11/28/23 Range/Units 06:21 WBC (3.8-10.6) k/uL RBC (4.30-5.90) m/uL Hgb (13.0-17.5) gm/dL Hct (39.0-53.0) % MCV (80.0-100.0) fL Neutrophils # (1.3-7.7) k/uL Lymphocytes # (1.0-4.8) k/uL Sodium 129 L (137-145) mmol/L Carbon Dioxide 19 L (22-30) mmol/L BUN 37 H (9-20) mg/dL Creatinine 1.45 H (0.66-1.25) mg/dL Glucose (74-99) mg/dL Plasma Lactic Acid George (0.7-2.0) mmol/L Calcium 8.0 L (8.4-10.2) mg/dL Total Bilirubin 3.7 H (0.2-1.3) mg/dL AST 98 H (17-59) U/L ALT 77 H (4-49) U/L Alkaline Phosphatase 439 H (38-126) U/L Total Protein 4.9 L (6.3-8.2) g/dL Albumin 2.4 L (3.5-5.0) g/dL Urine Protein (Negative) Urine Blood (Negative) Urine Bilirubin (Negative) Urine WBC (0-5) /hpf Urine Bacteria (None) /hpf Hyaline Casts (0-2) /lpf Urine Mucus (None) /hpf Assessment and Plan Assessment: Multiple lung nodules and liver nodules suspicious for cancer, unknown primary site Sepsis secondary to community-acquired pneumonia with left upper lobe nodule/mass 2.9 cm, cannot rule out neoplasm especially with there is fullness in the left hilum Hypovolemic hyponatremia Cirrhosis of the liver with portal hypertension, most likely secondary to his alcohol drinking Transaminitis with elevated bilirubin, rule out hepatobiliary disease. However most likely this is due to alcoholic transaminitis Nicotine dependence Alcohol use disorder at risk of alcohol withdrawal Substance abuse with marijuana Plan: Continue Zithromax and ceftriaxone Follow-up culture results Patient started on IV Solu-Medrol 60 mg Continue with CIWA and thiamine pulmonary consult Continue with gentle hydration 100 mL/h, he received several boluses in the ER Check urine analysis Labs and medication were reviewed.. Continue same treatment. Continue with sym ptomatic treatment. Resume home medication. Monitor labs and vitals. DVT and GI prophylaxis. Further recommendations as per clinical course of the patient DVT prophylaxis: Subcutaneous heparin GI Prophylaxis: Pepcid PT/OT: Pending Prognosis is guarded
--- NOTE | 2023-11-28 09:51 | XR ---
EXAMINATION TYPE: XR chest 2V DATE OF EXAM: 11/28/2023 COMPARISON: 11/27/23 HISTORY: Shortness of breath TECHNIQUE: Frontal and lateral views of the chest are obtained. FINDINGS: Scattered senescent parenchymal changes noted. Hyperinflation compatible with COPD. Basilar masslike density with pleural effusion and volume loss. Left upper lobe pulmonary nodule is u nchanged. Right rib lesion noted of right ribs 7. Heart size is stable. Mediastinal structures are stable and grossly unremarkable. No evidence for hilar prominence. Degenerative changes dorsal spine. IMPRESSION: 1. Basilar masslike density with pleural effusion and volume loss. Left upper lobe pulmonary nodule i s unchanged. Right rib lesion noted of right rib 7. [facility], , 11/28/2023 9:48 AM
--- NOTE | 2023-11-28 12:50 | P.PN ---
Subjective Progress Note Date: 11/28/23 Principal diagnosis: Acute left lower lobe pneumonia, multiple pulmonary nodules and hepatic nodules consistent with metastatic disease 57-year-old male patient, presented to the emergency department because of fever and sweating and shortness of breath. He also was having cough with yellow sputum production for the past few days. No nausea. No vomiting. Abdominal pain. He is a chronic smoker. He also drinks around 7 to 8, 12 ounce cans beers on a daily basis and he smokes marijuana occasionally. In the emergency, the patient was found to be febrile with a Tmax of 101.2. He was tachycardic and tachypneic with a pulse ox of 94% room air oxygen. White cell count was at 19. The viral screen showed negative influenza RSV and COVID-19 and the strep screen was also negative. The patient's chest x-ray showed a area of left lower lobe consolidation with a small effusion. There was another 2.9 cm focus in the left upper lobe that was concerning for neoplasm and based on the CAT scan of the chest was recommended. The patient is currently on a combination of R ocephin and Zithromax. Patient is on normal citrate of 130 cc an hour. Calm and comfortable. Hemodynamically stable. Still on room air oxygen with a pulse ox of 95%. The patient is a chronic smoker and history of smoking at the young age and the patient smokes around 1 pack of cigarettes on a daily basis. Patient was seen today on 11/28/23, I saw this patient while he was still in the ER, reviewed the CT of the chest with the patient, and explained to him that he has an extensive pneumonia involving the left lower lobe and he has extensive disease of pulmonary nodules and hepatic nodules highly suspicious for metastatic disease, primary site is not clear at this point. Could be pulmonary or could be GI in nature. Considering the patient's pneumonia, I prefer that the patient receives treatment for his pneumonia for now, and eventually has to be seen on outpatient basis for further diagnostic workup/biopsy, and the biopsy could be a pulmonary biopsy or a liver biopsy I prefer. That the patient gets a liver biopsy/ultrasound-guided by interventional radiology and that will be d iagnostic and for staging of the disease at the same time and this could be done on outpatient basis in the meantime my recommendation is to treat pneumonia. WBC count today is 18.6 hemoglobin is 12.4 electrolytes showed low sodium of 129 BUN is 37 creatinine 1.45. Objective - Vital Signs Vital signs: Vital Signs Temp 97.6 F 11/28/23 10:08 Pulse 85 11/28/23 09:14 Resp 18 11/28/23 09:14 BP 125/93 11/28/23 09:14 Pulse Ox 95 11/28/23 07:16 FiO2 Intake & Output 11/27/23 11/28/23 11/28/23 18:59 06:59 18:59 Weight 89.811 kg - Exam GENERAL: Reveals a 57-year-old white male in no distress. On room air with O2 sats is 95% HEENT: Pupils are round and equally reacting to light. EOMI. No scleral icterus. No conjunctival pallor. Normocephalic, atraumatic. No pharyngeal erythema. No thyromegaly. CARDIOVASCULAR: S1 and S2 present. No murmurs, rubs, or gallops. PULMONARY: Clear throughout no crackles rhonchi or wheezes ABDOMEN: Soft, nontender, nondistended, normoactive bowel sounds. No palpable organomegaly. MUSCULOSKELETAL: No deformities and no limitation range of motion EXTREMITIES: No cyanosis, clubbing, or pedal edema. NEUROLOGICAL: Alert oriented x 3 no gross focal deficit SKIN: No rashes. no petechiae. - Labs CBC & Chem 7: 11/28/23 06:21 11/28/23 06:21 Labs: Abnormal Lab Results - Last 24 Hours (Table) 11/27/23 11/28/23 11/28/23 Range/Units 14:23 01:43 06:21 WBC (3.8-10.6) k/uL RBC (4.30-5.90) m/uL Hgb (13.0-17.5) gm/dL Hct (39.0-53.0) % MCV (80.0-100.0) fL Neutrophils # (1.3-7.7) k/uL Lymphocytes # (1.0-4.8) k/uL Sodium (137-145) mmol/L Carbon Dioxide (22-30) mmol/L BUN (9-20) mg/dL Creatinine (0.66-1.25) mg/dL Plasma Lactic Acid George 2.7 H* (0.7-2.0) mmol/L Calcium (8.4-10.2) mg/dL Total Bilirubin (0.2-1.3) mg/dL AST (17-59) U/L ALT (4-49) U/L Alkaline Phosphatase (38-126) U/L Total Protein (6.3-8.2) g/dL Albumin (3.5-5.0) g/dL Procalcitonin 2.02 H (0.02-0.50) ng/mL Urine Protein 1+ H (Negative) Urine Blood Moderate H (Negative) Urine Bilirubin 1+ H (Negative) Urine WBC 15 H (0-5) /hpf Urine Bacteria Rare H (None) /hpf Hyaline Casts 23 H (0-2) /lpf Urine Mucus Rare H (None) /hpf 11/28/23 11/28/23 Range/Units 06:21 06:21 WBC 18.6 H (3.8-10.6) k/uL RBC 3.73 L (4.30-5.90) m/uL Hgb 12.4 L (13.0-17.5) gm/dL Hct 38.8 L (39.0-53.0) % MCV 104.2 H (80.0-100.0) fL Neutrophils # 17.5 H (1.3-7.7) k/uL Lymphocytes # 0.6 L (1.0-4.8) k/uL Sodium 129 L (137-145) mmol/L Carbon Dioxide 19 L (22-30) mmol/L BUN 37 H (9-20) mg/dL Creatinine 1.45 H (0.66-1.25) mg/dL Plasma Lactic Acid George (0.7-2.0) mmol/L Calcium 8.0 L (8.4-10.2) mg/dL Total Bilirubin 3.7 H (0.2-1.3) mg/dL AST 98 H (17-59) U/L ALT 77 H (4-49) U/L Alkaline Phosphatase 439 H (38-126) U/L Total Protein 4.9 L (6.3-8.2) g/dL Albumin 2.4 L (3.5-5.0) g/dL Procalcitonin (0.02-0.50) ng/mL Urine Protein (Negative) Urine Blood (Negative) Urine Bilirubin (Negative) Urine WBC (0-5) /hpf Urine Bacteria (None) /hpf Hyaline Casts (0-2) /lpf Urine Mucus (None) /hpf Assessment and Plan Assessment: Impression: Acute left lower lobe pneumonia, clinically acquired Acute sepsis secondary to acute community-acquired pneumonia Strongly suspect metastatic disease involving lungs, liver, and possible skeletal metastasis. Suspect acute obstructive jaundice with elevated liver enzymes and elevated alkaline phosphatase as well as elevated bilirubin Enlarged liver with multiple masses on the liver highly suspicious for malignancy. Acute exacerbation of COPD Acute hyponatremia most likely secondary to SIADH Acute lactic acidosis secondary to sepsis History of alcohol abuse Recommendation: Continue antibiotics for acute community-acquired pneumonia Continue bronchodilators for COPD Alcohol withdrawal precaution/CIWA protocol Continue IV fluids and monitor electrolytes Check blood cultures and check sputum cultures Consider ultrasound-guided biopsy of liver nodules by interventional radiology, if nondiagnostic would definitely arrange for bronchoscopy and martell needle/aspiration of mediastinal lymph nodes. Continue to monitor liver enzymes and liver function test, consider GI consultation. The presentation seems to be an obstructive type of presentation Continue to follow Overall prognosis is extremely poor and guarded Time with Patient: Less than 30
[2023-11-28] MEDS: LORazepam 2 MG/ML INJ IV PRN (22:12)
[2023-11-29 11:58] LABS: Basophils % (A) 0 %; Eosinophils % (A) 0 %; HCT 37.7 % (39.0-53.0); HGB 12.3 gm/dL (13.0-17.5); Lymphocytes # (A) 0.6 k/uL (1.0-4.8); Lymphocytes % (A) 3 %; MCH 34.1 pg (25.0-35.0); MCHC 32.6 g/dL (31.0-37.0); MCV 104.6 fL (80.0-100.0); Macrocytosis Moderate; Mean Platelet Volume 9.8; Monocytes # (A) 0.5 k/uL (0-1.0); Monocytes % (A) 3 %; Neutrophils % (A) 93 %; Platelet Count 332 k/uL (150-450); RBC 3.61 m/uL (4.30-5.90); RDW 14.4 % (11.5-15.5); WBC 19.3 k/uL (3.8-10.6)
[2023-11-29 12:12] LABS: INR 1.2 (<1.2); Partial Thromboplastin Time 23.8 sec (22.0-30.0); Prothrombin Time 12.9 sec (10.0-12.5)
[2023-11-29 12:22] LABS: ALT 96 U/L (4-49); AST 130 U/L (17-59); African American GFR (CKD) 46 (>60 ml/min/1.73 sqM); Albumin 2.6 g/dL (3.5-5.0); Alkaline Phosphatase 553 U/L (38-126); Anion Gap 8 mmol/L; Blood Urea Nitrogen 49 mg/dL (9-20); Calcium 8.2 mg/dL (8.4-10.2); Carbon Dioxide 15 mmol/L (22-30); Chloride 105 mmol/L (98-107); Glucose 135 mg/dL (74-99); Non-African American GFR(CKD) 40 (>60 ml/min/1.73 sqM); Potassium 4.2 mmol/L (3.5-5.1); Sodium 128 mmol/L (137-145); Total Bilirubin 3.8 mg/dL (0.2-1.3); Total Protein 5.1 g/dL (6.3-8.2)
--- NOTE | 2023-11-29 13:55 | P.CONS ---
History of Present Illness - Reason for Consult Consult date: 11/29/23 possible metastatic disease Requesting physician: Godwin E Sheet - Chief Complaint pneumonia - History of Present Illness Mr. Seth is a 57-year-old male who presented to ER 3 days ago with c/o fever, associated with SOB and change in voice. Documented Tmax 101.2F, HR 129. Chest CT with contrast reports airspace consolidation in the left lower lobe, possible infection. Lymphadenopathy in the mediastinum, scattered pulmonary nodules and liver lesions as well as upper abdominal lymphadenopathy. A right rib #7 expansile lesion. Gallbladder ultrasound performed because of history of alcohol abuse, fever. Reports a small amount of ascites, enlarging liver containing multiple masses. Patient does report some unintentional weight loss over a few months, not sure how much weight, he denies any hemoptysis, night sweats, oral irritation or difficulty swallowing, chest pain, new SOB or cough, he is not reporting any significant changes in the size of his abdomen, no acute changes in bladder habits, he reports his urine is being "yellow", no acute angel ges in bowel habits. He has a 43-year pack per day history of smoking, daily EtOH use, 6-7 beers after work. He works with [employer] for the last year and a half. Review of Systems 14 point ROS is neg except as stated in HPI Past Medical History Past Medical History: No Reported History History of Any Multi-Drug Resistant Organisms: None Reported Past Surgical History: No Surgical Hx Reported Past Anesthesia/Blood Transfusion Reactions: No Reported Reaction Past Psychological History: No Psychological Hx Reported Smoking Status: Current every day smoker Past Alcohol Use History: Daily Past Drug Use History: None Reported Medications and Allergies Home Medications Medication Instructions Recorded Confirmed Type No Known Home Medications 11/27/23 11/27/23 History Allergies Allergy/AdvReac Type Severity Reaction Status Date / Time No Known Allergies Allergy Verified 11/27/23 14:24 Physical Exam Vitals: Vital Signs Temp Pulse Pulse Resp BP BP Pulse Ox 11/29/23 08:19 97.1 F L 96 17 139/98 95 11/29/23 04:00 97.9 F 81 16 117/84 97 11/29/23 00:00 83 16 129/88 95 11/28/23 20:00 97.9 F 92 17 125/90 95 11/28/23 16:17 97.7 F 108 H 17 137/96 96 11/28/23 15:00 98 18 144/103 96 11/28/23 14:00 86 20 144/110 97 11/28/23 10:08 97.6 F 11/28/23 09:14 85 18 125/93 Intake and Output 11/28/23 11/29/23 11/29/23 22:59 06:59 14:59 Intake Total 360 Balance 360 Intake: Oral 360 Other: Voiding Method Toilet Toilet # Voids 0 2 Weight 89.811 kg 89.1 kg - Constitutional Looks older then stated age, muscle wasting of the extremities General appearance: cooperative, no acute distress - EENT Eyes: EOMI, poor dentition, scleral icterus ENT: hearing grossly normal, normal oropharynx - Neck Neck: no lymphadenopathy - Respiratory Respiratory: bilateral: wheezing, other (audible congestion) - Cardiovascular Rhythm: regular Heart sounds: normal: S1, S2 Abnormal Heart Sounds: no systolic murmur, no diastolic murmur, no rub, no S3 Gallop, no S4 Gallop, no click, no other leg Peripheral Edema: bilateral: 2+ - Gastrointestinal General gastrointestinal: no absent bowel sounds, no decreased bowel sounds, distended, hepatomegaly, no hyperactive bowel sounds, normal bowel sounds, no organomegaly, no rigid, no scaphoid, soft, no splenomegaly, no tenderness, no umbilical hernia, no ventral hernia - Neurologic Neurologic: CNII-XII intact - Musculoskeletal Musculoskeletal: strength equal bilaterally - Psychiatric Psychiatric: A&O x's 3, appropriate affect, intact judgment & insight Results CBC & Chem 7: 11/29/23 11:41 11/29/23 11:41 Labs: Abnormal Lab Results - Last 24 Hours (Table) 11/28/23 Range/Units 06:21 Procalcitonin 2.02 H (0.02-0.50) ng/mL Microbiology - Last 24 Hours (Table) 11/27/23 12:13 Blood Culture - Preliminary Blood CT scan - chest: report reviewed, image reviewed MRI - abdomen: report reviewed, image reviewed Assessment and Plan (1) Liver lesion Current Visit: Yes Status: Acute Priority: High Code(s): K76.9 - LIVER DISEASE, UNSPECIFIED SNOMED Code(s): 924381507 (2) Lung mass Current Visit: Yes Status: Acute Priority: High Code(s): R91.8 - OTHER NONSPECIFIC ABNORMAL FINDING OF LUNG FIELD SNOMED Code(s): 233348212 Plan: Lung masses, liver lesions -Reviewed image findings with pt. Discussed concerns a malignant process -Recommend biopsy for diagnosis, pt agreeable for the same -Case discussed with Interventional Radiologist, felt liver biopsy is realistic choice for biopsy target. Consult placed -Coags ordered -Pt wants to go home soon. Told once he has been treated adequately for the pneumonia and his Attending MD and other consulting MDs agree, he can be discharged. We will sched outpt follow up for results and order other imaging as needed. attests: I have seen and examined pt, performed H&P, developed impression and plan of care. Discussed with dictator. Agree with documentation, dictated as a scribe.
[2023-11-29] MEDS: HYDROmorphone 0.5 MG/0.5 ML SYRINGE IVP STA (14:06)
[2023-11-29 14:13] VITALS: BMI 30.7
[2023-11-29] MEDS: HYDROmorphone 1 MG/ML 1 ML SYRINGE IVP PRN (15:21)
[2023-11-29] MEDS: hydrALAZINE HCL 20 MG/ML 1 ML VIAL IVP PRN (15:21)
--- NOTE | 2023-11-29 15:44 | P.PN ---
Subjective Progress Note Date: 11/29/23 57-year-old male patient, presented to the emergency department because of fever and sweating and shortness of breath. He also was having cough with yellow sputum production for the past few days. No nausea. No vomiting. Abdominal pain. He is a chronic smoker. He also drinks around 7 to 8, 12 ounce cans beers on a daily basis and he smokes marijuana occasionally. In the emergency, the patient was found to be febrile with a Tmax of 101.2. He was tachycardic and tachypneic with a pulse ox of 94% room air oxygen. White cell count was at 19. The viral screen showed negative influenza RSV and COVID-19 and the strep screen was also negative. The patient's chest x-ray showed a area of left lower lobe consolidation with a small effusion. There was another 2.9 cm focus in the left upper lobe that was concerning for neoplasm and based on the CAT scan of the chest was recommended. The patient is currently on a combination of Rocephin and Zithromax. Patient is on normal citrate of 130 cc an hour. Calm and comfortable. Hemodynamically stable. Still on room air oxygen with a pulse ox of 95%. The patient is a chronic smoker and history of smoking at the young age and the patient smokes around 1 pack of cigarettes on a daily basis. Patient was seen today on 11/28/23, I saw this patient while he was still in the ER, reviewed the CT of the chest with the patient, and explained to him that he has an extensive pneumonia involving the left lower lobe and he has extensive disease of pulmonary nodules and hepatic nodules highly suspicious for metastatic disease, primary site is not clear at this point. Could be pulmonary or could be GI in nature. Considering the patient's pneumonia, I prefer that the patient receives treatment for his pneumonia for now, and eventually has to be seen on outpatient basis for further diagnostic workup/biopsy, and the biopsy could be a pulmonary biopsy or a liver biopsy I prefer. That the patient gets a liver biopsy/ultrasound-guided by interventional radiology and that will be diagnostic and for staging of the disease at the same time and this could be done on outpatient basis in the meantime my recommendation is to treat pneumonia. WBC count today is 18.6 hemoglobin is 12.4 electrolytes showed low sodium of 129 BUN is 37 creatinine 1.45. The patient is seen today November 29, 2023 in follow-up on the selective care unit. He is currently awake and alert in no acute distress. He is resting fairly comfortably in bed. His breathing is better today compared to yesterday. He is maintaining O2 saturations in the 90s on room air. He has been afebrile. Somewhat hypertensive. White count 19.3. Hemoglobin 12.3. Platelets 332. INR 1.2. Sodium 128. Potassium 4.2. Bicarb 15. BUN 49. Creatinine 1.82. Glucose 135. AST 130. ALT 96. Alk phos 553. Procalcitonin was 2.02. He is continued on ceftriaxone. Remains on Solu-Medrol. Remains on the CIWA protocol. Plan is for liver biopsy today. Objective - Vital Signs Vital signs: Vital Signs Temp 97.1 F L 11/29/23 08:19 Pulse 103 H 11/29/23 14:52 Resp 20 11/29/23 14:52 BP 150/106 11/29/23 14:52 Pulse Ox 95 11/29/23 14:52 FiO2 Intake & Output 11/28/23 11/29/23 11/29/23 18:59 06:59 18:59 Intake Total 360 240 Balance 360 240 Weight 89.811 kg 89.1 kg 89.1 kg Intake: Oral 360 240 Other: Voiding Method Toilet Toilet Toilet # Voids 0 2 0 # Bowel Movements 0 - Exam GENERAL EXAM: Alert, pleasant 57-year-old male, on room air, fairly comfortable in no apparent distress. HEAD: Normocephalic. EYES: Normal reaction of pupils, equal size. NOSE: Clear with pink turbinates. THROAT: No erythema or exudates. NECK: No masses, no JVD. CHEST: No chest wall deformity. LUNGS: Equal air entry with no crackles, wheeze, rhonchi or dullness. CVS: S1 and S2 normal with no audible murmur, regular rhythm. ABDOMEN: No hepatosplenomegaly, normal bowel sounds, no guarding or rigidity. SPINE: No scoliosis or deformity SKIN: No rashes CENTRAL NERVOUS SYSTEM: No focal deficits, tone is normal in all 4 extremities. EXTREMITIES: There is no peripheral edema. No clubbing, no cyanosis. Peripheral pulses are intact. - Labs CBC & Chem 7: 11/29/23 11:41 11/29/23 11:41 Labs: Abnormal Lab Results - Last 24 Hours (Table) 11/29/23 11/29/23 11/29/23 Range/Units 11:41 11:41 11:41 WBC 19.3 H (3.8-10.6) k/uL RBC 3.61 L (4.30-5.90) m/uL Hgb 12.3 L (13.0-17.5) gm/dL Hct 37.7 L (39.0-53.0) % MCV 104.6 H (80.0-100.0) fL Neutrophils # 18.0 H (1.3-7.7) k/uL Lymphocytes # 0.6 L (1.0-4.8) k/uL PT 12.9 H (10.0-12.5) sec INR 1.2 H (<1.2) Sodium 128 L (137-145) mmol/L Carbon Dioxide 15 L (22-30) mmol/L BUN 49 H (9-20) mg/dL Creatinine 1.82 H (0.66-1.25) mg/dL Glucose 135 H (74-99) mg/dL Calcium 8.2 L (8.4-10.2) mg/dL Total Bilirubin 3.8 H (0.2-1.3) mg/dL AST 130 H (17-59) U/L ALT 96 H (4-49) U/L Alkaline Phosphatase 553 H (38-126) U/L Total Protein 5.1 L (6.3-8.2) g/dL Albumin 2.6 L (3.5-5.0) g/dL Microbiology - Last 24 Hours (Table) 11/27/23 12:13 Blood Culture - Preliminary Blood Assessment and Plan Assessment: Acute left lower lobe pneumonia, community acquired Acute sepsis secondary to acute community-acquired pneumonia Strongly suspect metastatic disease involving lungs, liver, and possible skeletal metastasis. Suspect acute obstructive jaundice with elevated liver enzymes and elevated alkaline phosphatase as well as elevated bilirubin Enlarged liver with multiple masses on the liver highly suspicious for malignancy Acute exacerbation of COPD Acute hyponatremia most likely secondary to SIADH Acute lactic acidosis secondary to sepsis Chronic and ongoing tobacco dependence Hypertension History of alcohol abuse Plan: The patient was seen and evaluated Labs and medications reviewed Currently stable and on room air Plan is for liver biopsy today Continue with bronchodilators, steroids Continue antibiotics Educated regarding the importance of smoking cessation Educated regarding the importance of alcohol cessation I have personally seen and examined the patient, performed the documentation and the assessment and plan as written. Number of minutes spent on the visit: 10.
[2023-11-29] MEDS: IPRATROPIUM-ALBUTEROL 3 ML NEB INHALATION SCH (16:26)
--- NOTE | 2023-11-29 16:48 | CT ---
EXAMINATION TYPE: CT biopsy liver DATE OF EXAM: 11/29/2023 2:47 PM CLINICAL INDICATION:Male, 57 years old with history of see IR consult for further information; COMPARISON: 11/27/2023 CT DLP: 1776 mGycm, Automated exposure control for dose reduction was used. Contrast used: mL of , none Oral contrast used: none ATTENDING: Dr. Gurvinder Camarillo TECHNIQUE: CT guided percutaneous liver mass biopsy using coaxial method. One or more CT dose reduction strategi es were utilized during this examination. Total CT dose 1776 mGycm. FINDINGS: The procedure was explained to the patient including risks of bleeding, bruising, infection, damage t o nearby organs and need for additional therapy including potential surgery. All questions were answ ered and consent was obtained. The previous studies were reviewed. The patient was placed on the CT couch in the supine position. The overlying skin was marked and prepped using sterile method. Timeout was taken per protocol. Follo wing administration of local anesthesia a 17 gauge coaxial needle was introduced on the liver mass. The coaxial needle tip was directed into the mass with CT guidance. Multiple 18 gauge coaxial biopsi es were then obtained. Following the procedure the needle was removed and sterile dressing was vandana lied to the percutaneous site. Post biopsy imaging demonstrated no evidence of hemorrhage. Patient w as taken for postprocedure observation in stable condition. IMPRESSIONS: Status post percutaneous liver mass biopsy mass biopsy as described above. Pathology results pending. [facility], , 11/29/2023 4:46 PM
[2023-11-29] MEDS: hydrALAZINE HCL 25 MG TAB PO PRN (17:45)
--- NOTE | 2023-11-29 20:10 | P.PN ---
Subjective Progress Note Date: 11/29/23 This is a pleasant 57 years old male with past medical history of multiple medical problems, he has a history of alcohol use disorder is non-smoker He presents because of fever and sweating Of 1 day duration. He is complaining from little dyspnea but states he has been coughing with little yellow phlegm for about 1 to 2 weeks He denies abdominal pain vomiting or diarrhea, no urinary complaints, no heada marcel dizziness weakness or numbness He smokes 1 pack/day and he was counseled to quit but he does not want to quit and he denies nicotine patch. He drinks 7 to 8 cans of beer of 12 ounces each day. He uses marijuana at times He denies current signs symptoms of depression, suicidal or homicidal ideation On admission he has been having fever 101.2, he is tachycardic 118, he is breathing around 22-24, he was saturating 94% on room air He has leukocytosis of 19,000, hemoglobin 12.9, sodium 127, liver enzymes mildly elevated but bilirubin is 4.7 Troponin is negative, INR is unremarkable Influenza A and type B, RSV, SARS (coronavirus) are and detected Group B streptococcus is negative Chest x-ray reviewed by myself and per radiologist shows 2.9 cm left upper lung nodule with left hilar fullness suspicious for neoplasm versus pneumonia 11/27 Patient lying in bed fully awake and oriented, no respiratory symptoms while he is at rest. He got some dyspnea when he started talking heavily. No coughing no chest pain No abdominal pain no vomiting no diarrhea No significant alcohol withdrawal symptoms Vitals are stable Patient is made aware that he has been treated for pneumonia and also he has multiple nodules in the lungs of the liver suspicious for metastatic disease. Patient denies previous history of cancer. No urinary complaint He is hemodynamically stable. Leukocytosis improving slightly down to 18,000, hemoglobin is 12.4 stable Sodium is slightly better 127 up to 129 Creatinine went up 1.0 up to 1.4 Liver enzymes slightly elevated with bilirubin 3.7. Lactic acid back to reference range Urinalysis not suspicious of infection He has CT of the chest today showing left lower lobe infiltrate suspicious for pneumonia with metastatic disease with lymphadenopathy of the mediastinum and multiple lung and liver nodules, more than 20 liver nodules. Also he has osseous lesion of the fourth rib which could be also pathological fracture. Currently he is getting normal saline at 100 mL/h Also IV Solu-Medrol 60 mg/h We will send urine analysis and check a bladder scan Discussed with the staff 11/29/2023 Patient evaluated today on the cardiac unit. He was evaluated by speech therapy and will be going for a modified barium swallow tomorrow. Patient is scheduled to undergo IR CT guided liver biopsy today. Blood work reveals white blood cell count 19.3, hgb 12.3, PCV 104.6, sodium 128, potassium 4.2, BUN 49, creatinine 1.82. LFTs remain elevated, procalcitonin level 2.02. Review of Systems Constitutional: Denied any fatigue denied any fever. Cardio vascular: denied any chest pain, palpitations Gastrointestinal: denied any nausea, vomiting, diarrhea Pulmonary: Denied any shortness of breath cough Neurologic denied any new focal deficits All inpatient medications were reviewed and appropriate changes in these medications as dictated in the interval history and assessment and plan. PHYSICAL EXAMINATION: GENERAL: The patient is alert and oriented x3, not in any acute distress. Well developed, well nourished. HEENT: Pupils are round and equally reacting to light. EOMI. No scleral icterus. No conjunctival pallor. Normocephalic, atraumatic. No pharyngeal erythema. No thyromegaly. Voice is hoarse. CARDIOVASCULAR: S1 and S2 present. No murmurs, rubs, or gallops. PULMONARY: Chest is clear to auscultation, no wheezing or crackles. ABDOMEN: Soft, nontender, nondistended, normoactive bowel sounds. No palpable organomegaly. MUSCULOSKELETAL: No joint swelling or deformity. EXTREMITIES: No cyanosis, clubbing, or pedal edema. NEUROLOGICAL: Gross neurological examination did not reveal any focal deficits. SKIN: No rashes. Assessment: Multiple lung nodules and liver nodules suspicious for cancer, unknown primary site Sepsis secondary to community-acquired pneumonia with left upper lobe nodule/mass 2.9 cm, cannot rule out neoplasm especially with there is fullness in the left hilum Hyponatremia hypervolemic Acute kidney injury possible volume overload. 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 However most likely this is due to alcoholic transaminitis Nicotine dependence Alcohol use disorder at risk of alcohol withdrawal Substance abuse with marijuana GI prophylaxis Full Code Plan: Continue IV ceftriaxone Stop the IV fluids and repeat blood work in the AM Monitor renal function and electrolytes Monitor for urinary retention, bladder scan PRN If kidney function not improving will consult nephrology Follow-up culture results Patient started on IV Solu-Medrol 60 mg Continue with CIWA and thiamine Pulmonary consult Nicotine patch added Oncology consultation Patient will be going for CT guided liver biopsy today. The impression and plan of care has been dictated by Ines Whitfield, Nurse Practitioner as directed. Dr. Adalberto MD I have performed a history and physical examination and medical decision making of this patient, discussed the same with the dictator, and agree with the dictators assessment and plan as written, documented as a scribe. Based on total visit time, I have performed more than 50% of this visit. Objective - Vital Signs Vital signs: Vital Signs Temp 97.1 F L 11/29/23 08:19 Pulse 96 11/29/23 08:19 Resp 17 11/29/23 08:19 BP 139/98 11/29/23 08:19 Pulse Ox 95 11/29/23 08:19 FiO2 Intake & Output 11/28/23 11/29/23 11/29/23 18:59 06:59 18:59 Intake Total 360 240 Balance 360 240 Weight 89.811 kg 89.1 kg 89.1 kg Intake: Oral 360 240 Other: Voiding Method Toilet Toilet Toilet # Voids 0 2 0 # Bowel Movements 0 - Labs CBC & Chem 7: 11/29/23 11:41 11/29/23 11:41 Labs: Abnormal Lab Results - Last 24 Hours (Table) 11/29/23 11/29/23 11/29/23 Range/Units 11:41 11:41 11:41 WBC 19.3 H (3.8-10.6) k/uL RBC 3.61 L (4.30-5.90) m/uL Hgb 12.3 L (13.0-17.5) gm/dL Hct 37.7 L (39.0-53.0) % MCV 104.6 H (80.0-100.0) fL Neutrophils # 18.0 H (1.3-7.7) k/uL Lymphocytes # 0.6 L (1.0-4.8) k/uL PT 12.9 H (10.0-12.5) sec INR 1.2 H (<1.2) Sodium 128 L (137-145) mmol/L Carbon Dioxide 15 L (22-30) mmol/L BUN 49 H (9-20) mg/dL Creatinine 1.82 H (0.66-1.25) mg/dL Glucose 135 H (74-99) mg/dL Calcium 8.2 L (8.4-10.2) mg/dL Total Bilirubin 3.8 H (0.2-1.3) mg/dL AST 130 H (17-59) U/L ALT 96 H (4-49) U/L Alkaline Phosphatase 553 H (38-126) U/L Total Protein 5.1 L (6.3-8.2) g/dL Albumin 2.6 L (3.5-5.0) g/dL Microbiology - Last 24 Hours (Table) 11/27/23 12:13 Blood Culture - Preliminary Blood Assessment and Plan Time with Patient: Less than 30
[2023-11-29] MEDS: SYMBICORT 160-4.5 MCG INHALER INHALATION SCH (21:29)
[2023-11-30 07:22] LABS: Basophils % (A) 0 %; Eosinophils % (A) 0 %; HCT 37.6 % (39.0-53.0); HGB 12.1 gm/dL (13.0-17.5); Lymphocytes # (A) 0.7 k/uL (1.0-4.8); Lymphocytes % (A) 5 %; MCH 33.7 pg (25.0-35.0); MCHC 32.3 g/dL (31.0-37.0); MCV 104.2 fL (80.0-100.0); Macrocytosis Slight; Monocytes # (A) 0.4 k/uL (0-1.0); Monocytes % (A) 3 %; Neutrophils # (A) 14.3 k/uL (1.3-7.7); Neutrophils % (A) 92 %; Platelet Count 347 k/uL (150-450); RBC 3.61 m/uL (4.30-5.90); RDW 14.4 % (11.5-15.5); WBC 15.5 k/uL (3.8-10.6)
[2023-11-30 07:28] LABS: ALT 109 U/L (4-49); AST 124 U/L (17-59); African American GFR (CKD) 48 (>60 ml/min/1.73 sqM); Albumin 2.6 g/dL (3.5-5.0); Alkaline Phosphatase 491 U/L (38-126); Anion Gap 10 mmol/L; Blood Urea Nitrogen 50 mg/dL (9-20); Calcium 8.3 mg/dL (8.4-10.2); Carbon Dioxide 17 mmol/L (22-30); Chloride 103 mmol/L (98-107); Glucose 148 mg/dL (74-99); Non-African American GFR(CKD) 42 (>60 ml/min/1.73 sqM); Potassium 4.5 mmol/L (3.5-5.1); Sodium 130 mmol/L (137-145); Total Protein 5.1 g/dL (6.3-8.2)
[2023-11-30] MEDS: NICOTINE 21MG/24HR PATCH TRANSDERM SCH (07:43)
[2023-11-30] MEDS: FAMOTIDINE 20 MG/2 ML VIAL IV SCH (08:46)
[2023-11-30 08:55] VITALS: RESP 17
--- NOTE | 2023-11-30 10:59 | FL ---
Exam Date: 11/30/2023 10:05 AM. Modified barium swallow for dysphagia. Consistencies administered: Various consistency of barium. Fluoro time: 1.0 mins No images were sent to PACS. Please see speech pathology report. DAP: Not reported mGym2 Gycm2 pt with recurrent pneumonia, hoarseness. recent admission with liver and lung biopsies. raheem from speech and dr. chung. fl tme: 1.0 mins NOTES: thin, honey, nectar, pudding and solids mild vallecular residuals and post pharangeal peristalsis reduced. [facility], , 11/30/2023 10:57 AM
[2023-11-30 11:56] VITALS: BP 138/99; PULSE 104; TEMP 97.5
[2023-11-30] MEDS ORDERED: SODIUM CHLORIDE 0.9% 1,000 ML IV SCH (12:00)
[2023-11-30] MEDS: FUROSEMIDE 10 MG/ML 4 ML VIAL IV STA (12:34)
--- NOTE | 2023-11-30 12:50 | P.DS ---
Providers Date of admission: 11/27/23 13:05 Attending physician: Godwin Gibbs MD Consults: 11/27/23 13:05 Consult Physician Routine Consulting Provider: Shraddha Nam Consult Reason/Comments: pneumonia, sepsis,possible lung mass Do you want consulting provider notified?: Yes 11/28/23 16:08 Consult Physician Routine Consulting Provider: Bill Bernardo Consult Reason/Comments: CT done here new possible mets Do you want consulting provider notified?: Yes Primary care physician: Stated None Hospital Course: Patient is a 57-year-old male admitted for dyspnea and sepsis secondary to pneum onia. Patient is significant improvement in regards to pneumonia sepsis improved. Patient also found to have metastatic lesions in the liver and lung with elevated liver enzymes. Patient also believed to have hepatocellular disease mostly cirrhosis from alcoholism. Patient liver lesions were biopsied primary is unknown yet biopsy is pending. Patient was treated for alcohol withdrawals and was on CIWA and thiamine supplementation. Patient also treated for COPD exacerbation. Patient was hyponatremic secondary to hypervolemic hyponatremia with possible SIADH. PHYSICAL EXAMINATION: GENERAL: The patient is alert and oriented x3, not in any acute distress. Well developed, well nourished. HEENT: Pupils are round and equally reacting to light. EOMI. No scleral icterus. No conjunctival pallor. Normocephalic, atraumatic. No pharyngeal erythema. No thyromegaly. CARDIOVASCULAR: S1 and S2 present. No murmurs, rubs, or gallops. PULMONARY: Chest is clear to auscultation, no wheezing or crackles. ABDOMEN: Soft, nontender, nondistended, normoactive bowel sounds. No palpable organomegaly. MUSCULOSKELETAL: No joint swelling or deformity. EXTREMITIES: No cyanosis, clubbing, significant bilateral pedal edema NEUROLOGICAL: Gross neurological examination did not reveal any focal deficits. SKIN: No rashes. Assessment and plan Multiple lung and liver nodules and liver nodules suspicious for cancer, unknown primary site. Patient is status post biopsy and need to follow-up with PCP and oncology as an outpatient Sepsis secondary to community-acquired pneumonia with left upper lobe nodule/mass 2.9 cm, cannot rule out neoplasm. Biopsy results pending as mentioned above, patient will be discharged on 4 more days of antibiotics to complete the course of treatment for sepsis secondary to pneumonia Hyponatremia hypervolemic from possible cirrhosis, will be discharged on low- dose of Aldactone. Patient has significant bilateral pedal edema Acute kidney injury possible volume overload. 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 most likely this is due to acute alcoholic hepatitis, expected to improve with cessation of alcohol Nicotine dependence Alcohol use disorder, was treated for alcohol withdrawal Substance abuse with marijuana COPD with acute exacerbation improved Patient Condition at Discharge: Serious Plan - Discharge Summary Discharge Rx Participant: No New Discharge Prescriptions: New methylPREDNISolone Dose Pack [Medrol Dose Pack] 4 mg PO DIRECTED #21 tab Famotidine [Pepcid] 20 mg PO DAILY #30 tablet Furosemide [Lasix] 20 mg PO DAILY #30 tab cefUROXime axetiL [Ceftin] 500 mg PO BID 4 Days #8 tab Spironolactone [Aldactone] 25 mg PO DAILY #30 tablet Discharge Medication List Famotidine [Pepcid] 20 mg PO DAILY #30 tablet 11/30/23 [Rx] Furosemide [Lasix] 20 mg PO DAILY #30 tab 11/30/23 [Rx] Spironolactone [Aldactone] 25 mg PO DAILY #30 tablet 11/30/23 [Rx] cefUROXime axetiL [Ceftin] 500 mg PO BID 4 Days #8 tab 11/30/23 [Rx] methylPREDNISolone Dose Pack [Medrol Dose Pack] 4 mg PO DIRECTED #21 tab 11/30/23 [Rx] Follow up Appointment(s)/Referral(s): Bill Bernardo [STAFF PHYSICIAN] - 1 Week (please try to avoid scheduling december 04 or ) [facility] - 1-2 Days Shraddha Nam MD [STAFF PHYSICIAN] - 12/21/23 10:00 am Ambulatory/Diagnostic Orders: Basic Metabolic Panel [LAB.AMB] Location: None Selected Patient Instructions/Handouts: *Surgery [facility] - Lung, Liver, Kidney, Adrenal Glan d Biopsy Discharge Instructions, Pneumonia (DC) Activity/Diet/Wound Care/Special Instructions: 1500 cc fluid restriction Discharge/Stand Alone Forms: AA Meetings [place], Outpatient Counseling, Inp Substance Abuse Facilities, Personal Clinical Safety Specialist, Area PCPs Discharge Disposition: HOME SELF-CARE
--- NOTE | 2023-11-30 15:16 | P.PN ---
Subjective Progress Note Date: 11/30/23 Principal diagnosis: liver masses, lung mass In f/u today pt reports he doing well after liver biopsy, no unusual pain, drainage from site. He is tolerting oral intake, feels really tired and weak, abd persistently distended, BLE swelling also persists. Objective - Vital Signs Vital signs: Vital Signs Temp 97.5 F L 11/30/23 11:56 Pulse 104 H 11/30/23 11:56 Resp 17 11/30/23 11:56 BP 138/99 11/30/23 11:56 Pulse Ox 97 11/30/23 11:56 FiO2 Intake & Output 11/29/23 11/30/23 11/30/23 18:59 06:59 18:59 Intake Total 360 Balance 360 Weight 89.1 kg 89.4 kg Intake: Oral 360 Other: Voiding Method Toilet Toilet # Voids 0 1 2 # Bowel Movements 0 - Constitutional Constitutional Comment(s): Muscle wasting with large protruding abd, BLE pitting edema. Abd distended, no suspicious findings at the biopsy site. Resp mildly labored at rest, it takes effort for pt to change positions. General appearance: Present: cooperative - EENT Eyes: Present: scleral icterus ENT: Present: hearing grossly normal - Neurologic Neurologic: Present: CNII-XII intact - Psychiatric Psychiatric: Present: A&O x's 3, appropriate affect, intact judgment & insight - Labs CBC & Chem 7: 11/30/23 06:54 11/30/23 06:44 Labs: Abnormal Lab Results - Last 24 Hours (Table) 11/30/23 11/30/23 Range/Units 06:44 06:54 WBC 15.5 H (3.8-10.6) k/uL RBC 3.61 L (4.30-5.90) m/uL Hgb 12.1 L (13.0-17.5) gm/dL Hct 37.6 L (39.0-53.0) % MCV 104.2 H (80.0-100.0) fL Neutrophils # 14.3 H (1.3-7.7) k/uL Lymphocytes # 0.7 L (1.0-4.8) k/uL Sodium 130 L (137-145) mmol/L Carbon Dioxide 17 L (22-30) mmol/L BUN 50 H (9-20) mg/dL Creatinine 1.77 H (0.66-1.25) mg/dL Glucose 148 H (74-99) mg/dL Calcium 8.3 L (8.4-10.2) mg/dL Magnesium 3.0 H (1.6-2.3) mg/dL Total Bilirubin 4.0 H (0.2-1.3) mg/dL AST 124 H (17-59) U/L ALT 109 H (4-49) U/L Alkaline Phosphatase 491 H (38-126) U/L Total Protein 5.1 L (6.3-8.2) g/dL Albumin 2.6 L (3.5-5.0) g/dL Microbiology - Last 24 Hours (Table) 11/27/23 12:13 Blood Culture - Preliminary Blood Assessment and Plan (1) Liver lesion Status: Acute Priority: High Code(s): K76.9 - LIVER DISEASE, UNSPECIFIED SNOMED Code(s): 326192190 (2) Lung mass Status: Acute Priority: High Code(s): R91.8 - OTHER NONSPECIFIC ABNORMAL FINDING OF LUNG FIELD SNOMED Code(s): 822965968 Plan: Lung masses, liver lesions -S/P liver biopsy-pt tolerated well -Pt ok for DC from Onc standpoint once he has been treated adequately for the pneumonia and his Attending MD and other consulting MDs agree. -Plans for staging PET, molecular studies on tissue. We will call pt with scan info and follow up appts for results. attests: I have seen and examined pt, performed H&P, developed impression and plan of care. Discussed with dictator. Agree with documentation, dictated as a scribe.
--- NOTE | 2023-11-30 15:43 | P.PN ---
Subjective Progress Note Date: 11/30/23 57-year-old male patient, presented to the emergency department because of fever and sweating and shortness of breath. He also was having cough with yellow sputum production for the past few days. No nausea. No vomiting. Abdominal pain. He is a chronic smoker. He also drinks around 7 to 8, 12 ounce cans beers on a daily basis and he smokes marijuana occasionally. In the emergency, the patient was found to be febrile with a Tmax of 101.2. He was tachycardic and tachypneic with a pulse ox of 94% room air oxygen. White cell count was at 19. The viral screen showed negative influenza RSV and COVID-19 and the strep screen was also negative. The patient's chest x-ray showed a area of left lower lobe consolidation with a small effusion. There was another 2.9 cm focus in the left upper lobe that was concerning for neoplasm and based on the CAT scan of the chest was recommended. The patient is currently on a combination of Rocephin and Zithromax. Patient is on normal citrate of 130 cc an hour. Calm and comfortable. Hemodynamically stable. Still on room air oxygen with a pulse ox of 95%. The patient is a chronic smoker and history of smoking at the young age and the patient smokes around 1 pack of cigarettes on a daily basis. Patient was seen today on 11/28/23, I saw this patient while he was still in the ER, reviewed the CT of the chest with the patient, and explained to him that he has an extensive pneumonia involving the left lower lobe and he has extensive disease of pulmonary nodules and hepatic nodules highly suspicious for metastatic disease, primary site is not clear at this point. Could be pulmonary or could be GI in nature. Considering the patient's pneumonia, I prefer that the patient receives treatment for his pneumonia for now, and eventually has to be seen on outpatient basis for further diagnostic workup/biopsy, and the biopsy could be a pulmonary biopsy or a liver biopsy I prefer. That the patient gets a liver biopsy/ultrasound-guided by interventional radiology and that will be diagnostic and for staging of the disease at the same time and this could be done on outpatient basis in the meantime my recommendation is to treat pneumonia. WBC count today is 18.6 hemoglobin is 12.4 electrolytes showed low sodium of 129 BUN is 37 creatinine 1.45. The patient is seen today November 29, 2023 in follow-up on the selective care unit. He is currently awake and alert in no acute distress. He is resting fairly comfortably in bed. His breathing is better today compared to yesterday. He is maintaining O2 saturations in the 90s on room air. He has been afebrile. Somewhat hypertensive. White count 19.3. Hemoglobin 12.3. Platelets 332. INR 1.2. Sodium 128. Potassium 4.2. Bicarb 15. BUN 49. Creatinine 1.82. Glucose 135. AST 130. ALT 96. Alk phos 553. Procalcitonin was 2.02. He is continued on ceftriaxone. Remains on Solu-Medrol. Remains on the CIWA protocol. Plan is for liver biopsy today. The patient is seen today November 30, 2023 in follow-up on the selective care unit. He is currently awake and alert in no acute distress. Sitting up in a chair. Denies any worsening shortness of breath, cough or congestion. His voice remains hoarse. White count 15.5. Hemoglobin 12.1. Sodium 130. Potassium 4.5. Bicarb 17. BUN 50. Creatinine 1.77. Glucose 148. AST 124. ALT 109. Alk phos 491. Liver biopsy results are pending. Pains on antibiotics and steroids. Remains on the CIWA protocol. Objective - Vital Signs Vital signs: Vital Signs Temp 97.5 F L 11/30/23 11:56 Pulse 104 H 11/30/23 11:56 Resp 17 11/30/23 11:56 BP 138/99 11/30/23 11:56 Pulse Ox 97 11/30/23 11:56 FiO2 Intake & Output 11/29/23 11/30/23 11/30/23 18:59 06:59 18:59 Intake Total 360 Balance 360 Weight 89.1 kg 89.4 kg Intake: Oral 360 Other: Voiding Method Toilet Toilet # Voids 0 1 2 # Bowel Movements 0 - Exam GENERAL EXAM: Alert, 57-year-old male, sitting up in a chair, on room air, fairly comfortable in no apparent distress. HEAD: Normocephalic. EYES: Normal reaction of pupils, equal size. NOSE: Clear with pink turbinates. THROAT: No erythema or exudates. NECK: No masses, no JVD. CHEST: No chest wall deformity. LUNGS: Equal air entry with no crackles, wheeze, rhonchi or dullness. CVS: S1 and S2 normal with no audible murmur, regular rhythm. ABDOMEN: No hepatosplenomegaly, normal bowel sounds, no guarding or rigidity. SPINE: No scoliosis or deformity SKIN: No rashes CENTRAL NERVOUS SYSTEM: No focal deficits, tone is normal in all 4 extremities. EXTREMITIES: There is no peripheral edema. No clubbing, no cyanosis. Peripheral pulses are intact. - Labs CBC & Chem 7: 11/30/23 06:54 11/30/23 06:44 Labs: Abnormal Lab Results - Last 24 Hours (Table) 11/30/23 11/30/23 Range/Units 06:44 06:54 WBC 15.5 H (3.8-10.6) k/uL RBC 3.61 L (4.30-5.90) m/uL Hgb 12.1 L (13.0-17.5) gm/dL Hct 37.6 L (39.0-53.0) % MCV 104.2 H (80.0-100.0) fL Neutrophils # 14.3 H (1.3-7.7) k/uL Lymphocytes # 0.7 L (1.0-4.8) k/uL Sodium 130 L (137-145) mmol/L Carbon Dioxide 17 L (22-30) mmol/L BUN 50 H (9-20) mg/dL Creatinine 1.77 H (0.66-1.25) mg/dL Glucose 148 H (74-99) mg/dL Calcium 8.3 L (8.4-10.2) mg/dL Magnesium 3.0 H (1.6-2.3) mg/dL Total Bilirubin 4.0 H (0.2-1.3) mg/dL AST 124 H (17-59) U/L ALT 109 H (4-49) U/L Alkaline Phosphatase 491 H (38-126) U/L Total Protein 5.1 L (6.3-8.2) g/dL Albumin 2.6 L (3.5-5.0) g/dL Microbiology - Last 24 Hours (Table) 11/27/23 12:13 Blood Culture - Preliminary Blood Assessment and Plan Assessment: Acute left lower lobe pneumonia, community acquired Acute sepsis secondary to acute community-acquired pneumonia Strongly suspect metastatic disease involving lungs, liver, and possible skeletal metastasis. Status post liver biopsy on 11/29/2023 Suspect acute obstructive jaundice with elevated liver enzymes and elevated alkaline phosphatase as well as elevated bilirubin Enlarged liver with multiple masses on the liver highly suspicious for vidhi gnancy Acute exacerbation of COPD Acute hyponatremia most likely secondary to SIADH Acute lactic acidosis secondary to sepsis Chronic and ongoing tobacco dependence Hypertension History of alcohol abuse Plan: The patient was seen and evaluated Labs and medications reviewed Currently stable and on room air Liver biopsy results pending Continue with bronchodilators, steroids, antibiotics Educated regarding the importance of smoking cessation Educated regarding the importance of alcohol cessation To follow-up closely with oncology post discharge I have personally seen and examined the patient, performed the documentation and the assessment and plan as written. Number of minutes spent on the visit: 10.
[2023-12-01] MEDS ORDERED: methylPREDNISolone 4 MG TAB TAPER PO SCH (09:00)
== END 2023-11-30 14:42 | disposition home or self-care (01) | DRG 871 ==
LOC: EC 10:14 → 3SCARD 13:05
PROVIDERS: ADMIT Internal Medicine; ATTEND Internal Medicine
PROC: 0FB13ZX Excision of Right Lobe Liver, Percutaneous Approach, Diagnostic (ICD-10-PCS; principal; 2023-11-29)
DX: A41.9 Sepsis, unspecified organism (principal); J18.9 Pneumonia, unspecified organism; K83.1 Obstruction of bile duct; E22.2 Syndrome of inappropriate secretion of antidiuretic hormone; E87.21 Acute metabolic acidosis; C78.7 Secondary malignant neoplasm of liver and intrahepatic bile duct; K76.6 Portal hypertension; J44.0 Chronic obstructive pulmonary disease with (acute) lower respiratory infection; F10.139 Alcohol abuse with withdrawal, unspecified; J44.1 Chronic obstructive pulmonary disease with (acute) exacerbation; C78.02 Secondary malignant neoplasm of left lung; C79.51 Secondary malignant neoplasm of bone; N17.9 Acute kidney failure, unspecified; K70.30 Alcoholic cirrhosis of liver without ascites; K70.10 Alcoholic hepatitis without ascites; F10.10 Alcohol abuse, uncomplicated; F12.10 Cannabis abuse, uncomplicated; I10 Essential (primary) hypertension; F17.210 Nicotine dependence, cigarettes, uncomplicated; E86.1 Hypovolemia; M89.8X8 Other specified disorders of bone, other site; E87.70 Fluid overload, unspecified; M62.59 Muscle wasting and atrophy, not elsewhere classified, multiple sites; E87.8 Other disorders of electrolyte and fluid balance, not elsewhere classified; R59.0 Localized enlarged lymph nodes; Z11.52 Encounter for screening for COVID-19; Z71.6 Tobacco abuse counseling
CPT/HCPCS: 36415; 47000; 51798; 71046; 71260; 74230; 76705; 77012; 80053; 81001; 83605; 83735; 83880; 84145; 85025; 85610; 85730; 87040; 87449; 87636; 87651; 88307; 88341; 88342; 93005; 94640; 96361; 96365; 96366; 96367; 96372; 96375; 96376; 99291

== ENCOUNTER → 2023-12-06 | Outpatient (CLI) | payer OTHER ==
[2023-12-06 21:21] LABS: BUN/Creat Ratio 26.63 Ratio (12.00-20.00); Blood Urea Nitrogen 50.6 mg/dL (9.0-27.0); Carbon Dioxide 17.3 mmol/L (21.6-31.8); Chloride 99 mmol/L (96-109); Glucose 153 mg/dL (70-110); Potassium 4.8 mmol/L (3.5-5.5); Sodium 133 mmol/L (135-145)
== END | disposition home or self-care (01) ==
LOC: LABWHC1 11:25
PROVIDERS: ATTEND Internal Medicine
DX: N17.9 Acute kidney failure, unspecified (principal); E87.1 Hypo-osmolality and hyponatremia
CPT/HCPCS: 36415; 80048

== ENCOUNTER → 2023-12-09 | Outpatient (CLI) | payer OTHER ==
--- NOTE | 2023-12-10 18:03 | PE ---
EXAMINATION TYPE: PET CT fusion skull to thigh DATE OF EXAM: 12/09/2023 COMPARISON: 11/27/2023 Prior PET/CT: None at this location HISTORY: Liver and lung neoplasm TECHNIQUE: Following the intravenous administration of 13.25 mCi of F-18 FDG, whole body images are performed from the skull base to the midthigh. Images are reviewed on the computer in the coronal, a xial, and sagittal planes. Reconstructed rotating images are created on independent workstation and reviewed on the computer. A localization and attenuation correction CT is performed in conjunction with the PET scan. DLP: 474.73 mGycm SCAN: Initial Blood glucose: 139 mg/dL Average Mediastinum SUV: 1.5 to Average Liver SUV: 2.27. Best possible image without metastasis utilized FINDINGS: NECK: There is a solitary hyperintense area at the left skull base of uncertain location. This may b e within the superior torus tubarius, image 16 from SUV 4.07. THORAX: There are several foci of uptake within the superior mediastinum compatible with metastatic d isease, image 69, image 70, image 75; SUV 4.91 on image 70. Pretracheal adenopathy is present with i ncreased uptake, image 79, SUV 4.46. Extensive aortopulmonic window lymphadenopathy is present, SUV 6 .71 image 86 There is uptake within a left posterior lateral upper lung field nodule, image 79, SUV 4.99. There is some streak opacity within the posterior lateral left lung more likely related to atelectasi s. Mild elevation of the SUV is present however, example image 99, SUV 3.15. Lung nodules and mild uptake, right lateral sulcus image 109, SUV 1.49, image 107, SUV 0.58 posterior right lung, image 101 anterior left SUV 1.18 anterior right SUV 0.78. Posterior right 1.34 medial le ft apex image 75, is the 1.57. These are all intermediate in near background and can be inflammatory in nature. Given the additional findings, early metastasis should be considered within the differenti al. There is eccentric uptake within the distal esophagus which is somewhat prominent. Example image 110, SUV 5.47. ABDOMEN: Extensive ring lesions are through the liver compatible with multiple metastatic disease thr oughout the entire liver. Note is made there is some focal uptake within the posterior right mid kidney with little radiotracer elsewhere within the bilateral kidneys, image 164, SUV 4.11. There is focal uptake within the lateral right seventh rib with some expansion suspicious for metasta tic disease. PELVIS: There are couple of small foci of uptake within the posterior lateral pelvis, example image 2 13, SUV 4.5 and image 218, SUV 4.7. Couple of metastatic lesions could be considered. OSSEOUS STRUCTURES: Right costovertebral junction likely the transverse process in the region of T2, image 60, SUV 3.32. Increased uptake is within the posterior right femoral neck, SUV 5.[address]: In addition to mediastinal lymph nodes, lung nodules, and abnormal liver additional findings would include some mild ascites present adjacent to the liver and spleen and free fluid with in the pelvis. Bilateral inguinal hernias are noted. Osseous lesions are less well-visualized. IMPRESSION: 1. Multiple hepatic lesions throughout both lobes liver. 2. Multiple mediastinal and left hilar metastatic lymph nodes. 3. Abnormal uptake suspicious for neoplasm within the left lung nodule discussed above. 4. There are multiple additional smaller nodules with intermediate uptake. These nodules could be ear ly metastasis or related to a nonneoplastic etiology. 5. Metastatic osseous lesions right C2 transverse process, right lateral seventh rib, and right poste rior femoral neck. 6. Couple of foci of uptake within the right hemipelvis could be additional metastatic lesions. 7. Eccentric uptake within the distal esophagus, esophageal neoplasm should also be considered within the differential. [facility], Workstation: [facility], 12/10/2023 6:01 PM
== END | disposition home or self-care (01) ==
LOC: RADPETMAIN 12:14
PROVIDERS: ATTEND Internal Medicine
DX: C34.81 Malignant neoplasm of overlapping sites of right bronchus and lung
CPT/HCPCS: 78815

== ENCOUNTER 2023-12-16 14:09 | Inpatient (IN) | payer OTHER ==
--- NOTE | 2023-12-16 14:54 | ED ---
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 Patient was called by his primary care provider who had labs drawn yesterday and was told that he had to come to the ER emergently for high potassium. Patient endorses shortness of breath but denies any additional symptoms. He denies any chest pain, abdominal pain, nausea, vomiting, diarrhea, no recent fevers. He does state that he still making urine. - Related Data Home Medications Medication Instructions Recorded Confirmed Varenicline [Chantix Starter Pack] 0.5 mg PO DIRECTED 12/16/23 12/16/23 Previous Rx's Medication Instructions Recorded Famotidine [Pepcid] 20 mg PO DAILY #30 tablet 11/30/23 Furosemide [Lasix] 20 mg PO DAILY #30 tab 11/30/23 Spironolactone [Aldactone] 25 mg PO DAILY #30 tablet 11/30/23 Allergies Allergy/AdvReac Type Severity Reaction Status Date / Time No Known Allergies Allergy Verified 12/16/23 16:50 Review of Systems ROS Statement: Those systems with pertinent positive or pertinent negative responses have been documented in the HPI. ROS Other: All systems not noted in ROS Statement are negative. Past Medical History Past Medical History: No Reported History Additional Past Medical History / Comment(s): stage 4 - cx- unsure,. pneumonia History of Any Multi-Drug Resistant Organisms: None Reported Past Surgical History: No Surgical Hx Reported Past Anesthesia/Blood Transfusion Reactions: No Reported Reaction Past Psychological History: No Psychological Hx Reported Smoking Status: Current every day smoker Past Alcohol Use History: Daily, Occasional Past Drug Use History: None Reported General Exam - General Exam Comments Initial Comments: PE: CONSTITUTIONAL: Mild distress, ill-appearing SKIN: Cool, petechiae at ankles, jaundice, dry, superficial wound to top of left foot EYES: Pupils are equally round, extraocular movements intact without nystagmus, clear conjunctiva, scleral icterus noted HENT: Normocephalic, atraumatic, dry mucus membranes, oropharynx clear without exudates NECK: , Full range of motion, normal appearance PULMONARY: Clear to auscultation without wheezes, rhonchi, or rales, mild increased work of breathing, no accessory muscle use and no stridor CARDIOVASCULAR: Regular rate, rhythm, normal S1 and S2. No appreciated murmurs, rubs or gallops. 2+ radial pulses bilaterally, 2-3+ pitting edema extending up to the knees, feet are cool to the touch. GASTROINTESTINAL: Soft, active bowel sounds throughout, non-tender, distended, no rebound or guarding. Hepatomegaly MUSCULOSKELETAL: Extremities have no gross deformity, no joint swelling NEUROLOGIC:_a/o x 3, GCS 15, normal mentation and speech. Moves all extremities x 4 without motor or sensory deficit PSYCHIATRIC:_normal mood and affect, thought process is clear and linear Limitations: no limitations Course Vital Signs 12/16/23 12/16/23 12/16/23 14:21 14:25 15:12 Temperature 98.0 F Pulse Rate 78 82 82 Respiratory 16 22 24 Rate Blood Pressure 104/73 102/73 91/60 O2 Sat by Pulse 93 L 96 Oximetry 12/16/23 12/16/23 12/16/23 15:47 16:32 16:36 Temperature Pulse Rate 80 88 81 Respiratory 24 26 H Rate Blood Pressure 83/66 103/64 O2 Sat by Pulse 98 97 Oximetry 12/16/23 12/16/23 12/16/23 16:46 17:00 18:00 Temperature Pulse Rate 98 89 87 Respiratory 19 20 Rate Blood Pressure 101/74 92/59 O2 Sat by Pulse 98 95 Oximetry 12/16/23 12/16/23 20:20 20:51 Temperature 98.1 F Pulse Rate 80 96 Respiratory 25 H 21 Rate Blood Pressure 109/69 98/64 O2 Sat by Pulse 96 94 L Oximetry EKG Findings - EKG Comments: EKG Findings:: Sinus rhythm, rate 84 bpm, NH interval 176 ms, QRS duration 101 ms, QT/QTc 375/116, normal axis, no ST elevations or depressions, peaked T waves noted in V2, otherwise no arrhythmia Medical Decision Making - Medical Decision Making Was pt. sent in by a medical professional or institution (, PA, EVENT SPECIALIST PRODUCT DEMONSTRATOR, urgent care, hospital, or custodial...) When possible be specific @Yes pt sent by his primary care physician Did you speak to anyone other than the patient for history (EMS, parent, family, police, friend...)? What history was obtained from this source @ -Spoke with patient's sister at bedside Did you review nursing and triage notes (agree or disagree)? Why? @ -I reviewed and agree with nursing and triage notes Were old charts reviewed (outside hosp., previous admission, EMS record, old EKG, old radiological studies, urgent care reports/EKG's, custodial records)? Report findings @ Medical records reviewed, reviewed labs performed yesterday significant for hyperkalemia potassium 6.3, creatinine of 6.5, GFR of 6 . reviewed discharge summary from recent admission. Differential Diagnosis (chest pain, altered mental status, abdominal pain women, abdominal pain men, vaginal bleeding, weakness, fever, dyspnea, syncope, headache, dizziness, GI bleed, back pain, seizure, CVA, palpatations, mental health, musculoskeletal)? @ Differential diagnosis remains broad however top considerations include hepatorenal sydrome 2/2 liver cirrhosis, renal failure due to renal involvment from CA, ARF 2/2 medication side effect, dehydration, infection, CHF, outpatient lab error; this is not all inclusive list EKG interpreted by me (3pts min.). @ -As above X-rays interpreted by me (1pt min.). @ -Questionable developing consolidation in the fissure of the left lungs, no cardiomegaly, no obvious pleural effusions CT interpreted by me (1pt min.). @ -None done U/S interpreted by me (1pt. min.). @ -None done What testing was considered but not performed or refused? (CT, X-rays, U/S, labs)? Why? @ -I did consider obtaining VBG however at the time this was considered patient had decided on comfort care measures, so further blood draws/ VBG measurement not inline with patient's goals of care/ comfort care status What meds were considered but not given or refused? Why? @ -Did consider IV bicarb however patient elected comfort care measures Did you discuss the management of the patient with other professionals (professionals i.e. , PA, EVENT SPECIALIST PRODUCT DEMONSTRATOR, lab, RT, psych nurse, licensed social worker, probate lawyer, teacher, public health officer, case finisher)? Give summary @ I did discuss case with Dr. Romero, appreciate recs, paged prior to decision for comfort care, who rec'd bladder scan to ensure no obstruction and VBG and if severely acidotic, administer bicarb gtt, however after paging Dr. Romero patient had elected to go comfort care Was smoking cessation discussed for >3mins.? @ -No Was critical care preformed (if so, how long)? @Yes, 35 minutes Were there social determinants of health that impacted care today? How? (Homelessness, low income, unemployed, alcoholism, drug addiction, transportation, low edu. Level, literacy, decrease access to med. care, [place] [facility], rehab)? @ -Alcoholism Was there de-escalation of care discussed even if they declined (Discuss DNR or withdrawal of care, Hospice)? @ Yes, withdrawal of care/ hospice was discussed What co-morbidities impacted this encounter? (DM, HTN, Smoking, COPD, CAD, Cancer, CVA, ARF, Chemo, Hep., AIDS, mental health diagnosis, sleep apnea, morbid obesity)? @ -Metastatic CA, liver cirrhosis Was patient admitted / discharged? Hospital course, mention meds given and route, prescriptions, significant lab abnormalities, going to OR and other pertinent info. @ -Hospital course admission Patient is a 58-year-old gentleman with a past medical history of stage IV metastatic cancer with metastases to the lung liver, and bones, liver cirrhosis, alcoholism recent admission for pneumonia and recent diagnosis of cancer presenting today for hyperkalemia and concern for acute renal failure. Patient noted be hyperkalemic with elevated creatinine and GFR of 6 on outpatient labs from yesterday. Patient currently denies any symptoms, on my assessment he is ill-appearing, jaundiced, scleral icterus present, distended abdomen, he does appear to be a mild distress with mild tachypnea however he denies sensation of shortness of breath. He has bilateral lower extremity edema 2-3+, petechiae noted at the ankles and a small superficial sore to the dorsal aspect of the left foot. His distal extremities are cool to the touch. Patient is supposed to be meeting with oncology to initiate chemotherapy for his newly found cancer however he was told by his oncologist that even with chemotherapy he had less than 6 months to live. With patient's acute renal failure, known stage IV cancer with metastases in his very ill appearance and poor prognosis I did discuss with the patient and his sister goals of care. We discussed possible treatment for ARF and hyperkalemia but additionally discussed initiating hospice. Patient requested time to decide on this, and in the meantime, we will continue treating and working up patient's hyperkalemia and shortness of breath. CXR, comprehensive labs ordered. EKG did show findings consistent with hyperkalemia, peaked T waves noted, patient's potassium 6.3 on labs checked yesterday and for this reason, we will treat hyperkalemia prior to lab recheck here. Ordered high dose albuterol and insulin and dextrose as well as calcium gluconate to be administered prior to receiving patient's initial set of labs. I was alerted by RN that after discussing with his sister, patient decided to initiate hospice. I went to evaluate the patient and discussed this with the patient and his sister and he confirmed request for comfort care. [facility] case management was able to discuss and coordinate hospice care with the patient and his sister. Patient sister is unsure if hospice will be able all their supplies to patient's home tonight and is concerned about taking him home without full hospice care. Patient will be admitted to the hospital under comfort care to coordinate outpatient hospice care. Firmed with the patient and his sister that this would mean that he is a DNR, we would stop doing any aggressive treatments or blood draws to further treat his renal failure or hyperkalemia and he would only give medications to keep him comfortable and pain-free. Patient is understanding and agreeable with this. Discussed with Dr. Hernandez, patient admitted in stable condition. Undiagnosed new problem with uncertain prognosis? @ -No Drug Therapy requiring intensive monitoring for toxicity (Heparin, Nitro, Insulin, Cardizem)? @ -No Were any procedures done? @ -No Diagnosis/symptom? @ -Acute renal failure, hyperkalemia, liver failure Acute, or Chronic, or Acute on Chronic? @Acute, acute on chronic Uncomplicated (without systemic symptoms) or Complicated (systemic symptoms)? @Complicated Side effects of treatment? @ -No Exacerbation, Progression, or Severe Exacerbation? @ -Progression Poses a threat to life or bodily function? How? (Chest pain, [place], [place], pneumonia, PE, COPD, DKA, ARF, appy, cholecystitis, CVA, Diverticulitis, Homicidal, Suicidal, threat to staff... and all critical care pts) @ -yes - Lab Data Result diagrams: 12/16/23 15:13 12/16/23 18:48 Lab Results 12/16/23 12/16/23 12/16/23 Range/Units 15:13 15:13 15:13 WBC 7.6 (3.8-10.6) k/uL RBC 3.72 L (4.30-5.90) m/uL Hgb 12.9 L (13.0-17.5) gm/dL Hct 39.6 (39.0-53.0) % MCV 106.4 H (80.0-100.0) fL MCH 34.7 (25.0-35.0) pg MCHC 32.7 (31.0-37.0) g/dL RDW 16.8 H (11.5-15.5) % Plt Count 188 (150-450) k/uL MPV 11.5 Neutrophils % 87 % Lymphocytes % 5 % Monocytes % 5 % Eosinophils % 1 % Basophils % 0 % Neutrophils # 6.6 (1.3-7.7) k/uL Lymphocytes # 0.4 L (1.0-4.8) k/uL Monocytes # 0.4 (0-1.0) k/uL Eosinophils # 0.0 (0-0.7) k/uL Basophils # 0.0 (0-0.2) k/uL Manual Slide Review Performed Large Platelets Present Anisocytosis Slight Macrocytosis Marked A Target Cells Present Stomatocytes Present PT 14.2 H (10.0-12.5) sec INR 1.4 H (<1.2) APTT 24.8 (22.0-30.0) sec Sodium 126 L (137-145) mmol/L Potassium 6.2 H* (3.5-5.1) mmol/L Chloride 99 (98-107) mmol/L Carbon Dioxide 10 L (22-30) mmol/L Anion Gap 17 mmol/L BUN 120 H* (9-20) mg/dL Creatinine 7.33 H* (0.66-1.25) mg/dL Est GFR (CKD-EPI)AfAm 9 (>60 ml/min/1.73 sqM) Est GFR (CKD-EPI)NonAf 7 (>60 ml/min/1.73 sqM) Glucose 157 H (74-99) mg/dL Calcium 6.9 L (8.4-10.2) mg/dL Magnesium 3.4 H (1.6-2.3) mg/dL Total Bilirubin 19.5 H* (0.2-1.3) mg/dL AST 143 H (17-59) U/L ALT 114 H (4-49) U/L Alkaline Phosphatase 1136 H (38-126) U/L Troponin I (0.000-0.034) ng/mL NT-Pro-B Natriuret Pep 4310 pg/mL Total Protein 6.1 L (6.3-8.2) g/dL Albumin 3.4 L (3.5-5.0) g/dL 12/16/23 Range/Units 15:13 WBC (3.8-10.6) k/uL RBC (4.30-5.90) m/uL Hgb (13.0-17.5) gm/dL Hct (39.0-53.0) % MCV (80.0-100.0) fL MCH (25.0-35.0) pg MCHC (31.0-37.0) g/dL RDW (11.5-15.5) % Plt Count (150-450) k/uL MPV Neutrophils % % Lymphocytes % % Monocytes % % Eosinophils % % Basophils % % Neutrophils # (1.3-7.7) k/uL Lymphocytes # (1.0-4.8) k/uL Monocytes # (0-1.0) k/uL Eosinophils # (0-0.7) k/uL Basophils # (0-0.2) k/uL Manual Slide Review Large Platelets Anisocytosis Macrocytosis Target Cells Stomatocytes PT (10.0-12.5) sec INR (<1.2) APTT (22.0-30.0) sec Sodium (137-145) mmol/L Potassium (3.5-5.1) mmol/L Chloride (98-107) mmol/L Carbon Dioxide (22-30) mmol/L Anion Gap mmol/L BUN (9-20) mg/dL Creatinine (0.66-1.25) mg/dL Est GFR (CKD-EPI)AfAm (>60 ml/min/1.73 sqM) Est GFR (CKD-EPI)NonAf (>60 ml/min/1.73 sqM) Glucose (74-99) mg/dL Calcium (8.4-10.2) mg/dL Magnesium (1.6-2.3) mg/dL Total Bilirubin (0.2-1.3) mg/dL AST (17-59) U/L ALT (4-49) U/L Alkaline Phosphatase (38-126) U/L Troponin I 0.027 (0.000-0.034) ng/mL NT-Pro-B Natriuret Pep pg/mL Total Protein (6.3-8.2) g/dL Albumin (3.5-5.0) g/dL Disposition Clinical Impression: Acute renal failure, Admission for hospice care Disposition: ADMITTED IP TO THIS HOSP Condition: Stable
--- NOTE | 2023-12-16 15:27 | XR ---
EXAMINATION TYPE: XR chest 1V portable DATE OF EXAM: 12/16/2023 3:19 PM CLINICAL INDICATION: Male, 58 years old with history of shortness of breath; [facility] COMPARISON: Chest radiographs from 11/28/2023 TECHNIQUE: XR chest 1V portable Frontal view of the chest. FINDINGS: Lungs/Pleura: Right lower lobe airspace opacity not seen on prior. Left mid and lower lung streaky pr obable atelectasis. There is no evidence of pleural effusion, focal consolidation, or pneumothorax. Pulmonary vascularity: Unremarkable. Heart/mediastinum: Cardiomediastinal silhouette is unremarkable. Musculoskeletal: No acute osseous pathology. IMPRESSION: Left mid/lower lung streaky probable atelectasis. Right lower lobe airspace opacities chronic for pne umonia. [facility], , 12/16/2023 3:25 PM
[2023-12-16 15:37] LABS: Anisocytosis Slight; Basophils % (A) 0 %; Eosinophils % (A) 1 %; HCT 39.6 % (39.0-53.0); HGB 12.9 gm/dL (13.0-17.5); Lymphocytes # (A) 0.4 k/uL (1.0-4.8); Lymphocytes % (A) 5 %; MCH 34.7 pg (25.0-35.0); MCHC 32.7 g/dL (31.0-37.0); MCV 106.4 fL (80.0-100.0); Macrocytosis Marked; Mean Platelet Volume 11.5; Monocytes # (A) 0.4 k/uL (0-1.0); Monocytes % (A) 5 %; Neutrophils # (A) 6.6 k/uL (1.3-7.7); Neutrophils % (A) 87 %; Platelet Count 188 k/uL (150-450); RBC 3.72 m/uL (4.30-5.90); RDW 16.8 % (11.5-15.5); WBC 7.6 k/uL (3.8-10.6)
[2023-12-16 15:42] LABS: ALT 114 U/L (4-49); AST 143 U/L (17-59); Albumin 3.4 g/dL (3.5-5.0); Alkaline Phosphatase 1136 U/L (38-126); Anion Gap 17 mmol/L; Calcium 6.9 mg/dL (8.4-10.2); Carbon Dioxide 10 mmol/L (22-30); Chloride 99 mmol/L (98-107); Glucose 157 mg/dL (74-99); Magnesium 3.4 mg/dL (1.6-2.3); Sodium 126 mmol/L (137-145)
[2023-12-16 15:48] LABS: African American GFR (CKD) 9 (>60 ml/min/1.73 sqM); Non-African American GFR(CKD) 7 (>60 ml/min/1.73 sqM)
[2023-12-16 15:51] LABS: NT-Pro-B-Type Natriuretic Pept 4310 pg/mL
[2023-12-16 15:59] LABS: INR 1.4 (<1.2); Partial Thromboplastin Time 24.8 sec (22.0-30.0); Prothrombin Time 14.2 sec (10.0-12.5)
[2023-12-16 16:04] LABS: Blood Urea Nitrogen 120 mg/dL (9-20); Large Platelets Present; Potassium 6.2 mmol/L (3.5-5.1)
[2023-12-16 16:05] LABS: Stomatocytes Present; Target Cells Present
[2023-12-16 16:07] LABS: Total Bilirubin 19.5 mg/dL (0.2-1.3)
[2023-12-16 16:08] LABS: Total Protein 6.1 g/dL (6.3-8.2)
[2023-12-16] MEDS: CALCIUM GLUCONATE IN NACL 1 GM in SALINE 1 100ML.BAG IVPB ONE (16:24)
[2023-12-16] MEDS: INSULIN REGULAR 100 UNIT/ML VIAL (IV) IV ONE ×2 (16:27→20:27)
[2023-12-16] MEDS: DEXTROSE 50% SYRINGE 50 ML IVP ONE (16:27)
[2023-12-16] MEDS: ALBUTEROL NEB (CONC) 2.5 MG/0.5 ML INHALATION ONE (16:32)
[2023-12-16] MEDS: FUROSEMIDE 10 MG/ML 2 ML VIAL IV ONE ×2 (16:55)
[2023-12-16] MEDS: ALPRAZolam 0.5 MG TAB PO STA (16:55)
[2023-12-16] MEDS ORDERED: HYDROmorphone 0.5 MG/0.5 ML SYRINGE IVP PRN (17:44)
[2023-12-16] MEDS ORDERED: ONDANSETRON 4 MG/2 ML VIAL IVP PRN (17:44)
[2023-12-16] MEDS ORDERED: MORPHINE SULFATE 4 MG/ML SYRINGE IV PRN (17:44)
[2023-12-16] MEDS ORDERED: NALOXONE 0.4 MG/ML 1 ML VIAL IV PRN (17:44)
[2023-12-16] MEDS ORDERED: ALPRAZolam 0.25 MG TAB PO PRN (17:44)
[2023-12-16] MEDS ORDERED: ACETAMINOPHEN TAB 325 MG TAB PO PRN (17:44)
[2023-12-16] MEDS: NICOTINE 21MG/24HR PATCH TRANSDERM SCH (18:15)
--- NOTE | 2023-12-16 18:16 | P.HPIM ---
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 He presented to the emergency department as directed by his PCP for reports of abnormal labs with reports of elevated potassium levels and acute kidney failure.. Patient otherwise reports generalized fatigue and feeling extremely tired and shortness of breath. He currently denies having any pain or discomfort, headache, lightheadedness, dizziness, chest pain, palpitations, cough or congestion, or experiencing any numbness/tingling/weakness in his extremities. Upon arrival to our facility, patient underwent evaluation in the emergency department. Vital signs upon arrival show blood pressure 104/73, heart rate 78, respiratory rate 16, temp 98.0 F, and SpO2 of 93% on room air. EKG completed showing normal sinus rhythm at 84 bpm with peaked T waves T wave and ST changes. Chest x-ray was completed showing left mid and lower lung streaky atelectasis and right lower lobe opacities. Labs were completed and reviewed. CBC showing macrocytic anemia with hemoglobin of 12.9 and MCV of 106.4. Coagulation profile showing elevated PT of 14.2 and INR of 1.4. BMP showing hyponatremia with sodium of 126, hyperchloremia with chloride of 6.2, chloride of 99, bicarb of 10, and anion gap of 17 along with acute renal failure with BUN of 120, creatinine of 7.33, GFR of 7 with baseline creatinine around 1.7. Blood glucose was 157. Mag nesium elevated at 3.4. Liver profile showing total bili of 19.5, AST of 143, ALT of 114, and alkaline phosphatase of 1136. Troponin was 0.027, and proBNP was 4310. Patient and patient's family at bedside requesting all treatment to be stopped as he recently met with his oncologist and was reportedly informed that even with chemotherapy he had less than 6 months to live. With the new findings of acute renal failure and liver failure patient and patient family wanting to initiate hospice care at this time and stopping all further treatment. Patient states he is a DNR and would like to remain a DNR and only wants medications needed for comfort measures only. Family reports they would like to take him home on hospice and [facility] hospice was consulted. Patient did receive treatment for hyperkalemia in the emergency department, however patient declining any further treatment or labs to be drawn at this time. Review of systems: Pertinent positives and negatives as discussed in HPI, a complete review of systems was performed and all other systems are negative. Physical exam: Vital signs reviewed and stable. General: Nontoxic, no distress and appears stated age. Derm: Skin warm and dry, jaundiced. Head: Atraumatic, normocephalic and symmetric. Eyes: EOM's intact, no lid lag, and scleral icterus present Mouth: no lip lesions, mucus membranes moist Cardiovascular: regular rate and rhythm with normal S1S2, systolic murmur, positive posterior tibial pulses bilaterally, and cap refill < 2 seconds. Lungs: Respirations even, regular, and unlabored on room air. Lungs CTA bilaterally, no rhonchi, no rales, no wheezing, and no accessory muscle usage. Abdominal: soft, nontender to palpation, no guarding, no appreciable organomegaly Ext: ROM intact. No gross muscle atrophy, 2+ pitting bilateral lower extremity edema, no contractures Neuro: Speech clear, face symmetrical and CN II-XII grossly intact with no noted focal neuro deficits Psych: Alert and oriented to person, place, time, and situation. Appropriate and pleasant affect. Assessment and Plan of Care: Stage IV metastatic cancer of unknown primary source with known mets to liver, lung, and bones Acute kidney failure Acute liver failure Hyperkalemia Hyponatremia High anion gap metabolic acidosis Alcoholic cirrhosis Longstanding history of alcohol use/abuse -Comfort measures only. -Symptomatic care and pain management with Dilaudid 0.5 mg every 3 hours as needed for moderate pain and morphine 4 mg every 4 hours for severe pain. -Tylenol 650 mg every 4 hours as needed for fever and/or mild pain. -Artificial teardrops to bilateral eyes every 2 hours as needed for dry eyes. -Zofran as needed for nausea and/or vomiting. -Ativan 1 mg IVP every 6 hours as needed for agitation or acute anxiety. -Consult placed to [facility] for assistance in making arrangements of discharging patient home with family on hospice. Data and imaging reviewed: As stated above in HPI CODE STATUS: DNR/DNI, comfort measures only Anticipated discharge date: Likely tomorrow, awaiting [facility] to make arrangements for delivery use of hospital bed and supplies Anticipated discharge place: Home with hospice Patient was seen independently by Nurse Practitioner. This document was prepared using [employer] dictation software. 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 I reviewed the documentation as provided by the KIMMY above, who is the original author of this note. I agree with the documented assessment and plan, with the following changes: none Past Medical History Past Medical History: No Reported History Additional Past Medical History / Comment(s): stage 4 - cx- unsure,. pneumonia History of Any Multi-Drug Resistant Organisms: None Reported Past Surgical History: No Surgical Hx Reported Past Anesthesia/Blood Transfusion Reactions: No Reported Reaction Past Psychological History: No Psychological Hx Reported Smoking Status: Current every day smoker Past Alcohol Use History: Daily, Occasional Past Drug Use History: None Reported Medications and Allergies Home Medications Medication Instructions Recorded Confirmed Type Famotidine [Pepcid] 20 mg PO DAILY #30 tablet 11/30/23 12/16/23 Rx Furosemide [Lasix] 20 mg PO DAILY #30 tab 11/30/23 12/16/23 Rx Spironolactone [Aldactone] 25 mg PO DAILY #30 tablet 11/30/23 12/16/23 Rx Varenicline [Chantix Starter Pack] 0.5 mg PO DIRECTED 12/16/23 12/16/23 History Allergies Allergy/AdvReac Type Severity Reaction Status Date / Time No Known Allergies Allergy Verified 12/16/23 16:50 Physical Exam Osteopathic Statement: *. No significant issues noted on an osteopathic structural exam other than those noted in the History and Physical/Consult. Vitals: Vital Signs Temp Pulse Resp BP Pulse Ox 12/16/23 16:46 98 12/16/23 16:36 81 26 H 103/64 97 12/16/23 16:32 88 12/16/23 15:47 80 24 83/66 98 12/16/23 15:12 82 24 91/60 12/16/23 14:25 82 22 102/73 96 12/16/23 14:21 98.0 F 78 16 104/73 93 L Intake and Output 12/16/23 12/16/23 12/16/23 06:59 14:59 22:59 Other: Weight 77.111 kg Results CBC & Chem 7: 12/16/23 15:13 12/16/23 18:48 Labs: Abnormal Lab Results - Last 24 Hours (Table) 12/16/23 12/16/23 12/16/23 Range/Units 15:13 15:13 15:13 RBC 3.72 L (4.30-5.90) m/uL Hgb 12.9 L (13.0-17.5) gm/dL MCV 106.4 H (80.0-100.0) fL RDW 16.8 H (11.5-15.5) % Lymphocytes # 0.4 L (1.0-4.8) k/uL Macrocytosis Marked A PT 14.2 H (10.0-12.5) sec INR 1.4 H (<1.2) Sodium 126 L (137-145) mmol/L Potassium 6.2 H* (3.5-5.1) mmol/L Carbon Dioxide 10 L (22-30) mmol/L BUN 120 H* (9-20) mg/dL Creatinine 7.33 H* (0.66-1.25) mg/dL Glucose 157 H (74-99) mg/dL Calcium 6.9 L (8.4-10.2) mg/dL Magnesium 3.4 H (1.6-2.3) mg/dL Total Bilirubin 19.5 H* (0.2-1.3) mg/dL AST 143 H (17-59) U/L ALT 114 H (4-49) U/L Alkaline Phosphatase 1136 H (38-126) U/L Total Protein 6.1 L (6.3-8.2) g/dL Albumin 3.4 L (3.5-5.0) g/dL
[2023-12-16] MEDS ORDERED: ARTIFICIAL TEARS-HYPROMELLOSE DROPS 15 ML BTL BOTH EYES PRN (19:12)
[2023-12-16] MEDS: DEXTROSE 50% SYRINGE 50 ML IVP STA (20:21)
[2023-12-16] MEDS: SODIUM BICARB 8.4% 50 ML SYR (1 MEQ/ML) IV STA (20:23)
[2023-12-16] MEDS: CALCIUM GLUCONATE IN NACL 2 GM in SALINE 1 100ML.BAG IVPB ONE (20:24)
[2023-12-16] MEDS: FAMOTIDINE 20 MG TAB PO SCH (20:30)
[2023-12-16] MEDS: SODIUM ZIRCONIUM CYCLOSILICATE 10 GM PACKET PO ONE (20:31)
[2023-12-16] MEDS: MAG HYDROX/AL HYDROX/SIMETH 30 ML, LIDOCAINE VISCOUS 2% 30 ML, diphenhydrAMINE ELIXIR 7... PO SCH (22:50)
[2023-12-17] MEDS: LORazepam 2 MG/ML INJ IV PRN (01:48)
[2023-12-17 02:09] VITALS: TEMP 97.5
[2023-12-17 07:47] VITALS: BP 94/55; PULSE 77; RESP 16
[2023-12-17 08:28] VITALS: BMI 26.6
--- NOTE | 2023-12-17 10:17 | P.DS ---
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 He presented to the emergency department as directed by his PCP for reports of abnormal labs with reports of elevated potassium levels and acute kidney failure.. Patient otherwise reports generalized fatigue and feeling extremely tired and shortness of breath. He currently denies having any pain or discomfort, headache, lightheadedness, dizziness, chest pain, palpitations, cough or congestion, or experiencing any numbness/tingling/weakness in his extremities. Upon arrival to our facility, patient underwent evaluation in the emergency department. Vital signs upon arrival show blood pressure 104/73, heart rate 78, respiratory rate 16, temp 98.0 F, and SpO2 of 93% on room air. EKG completed showing normal sin us rhythm at 84 bpm with peaked T waves T wave and ST changes. Chest x-ray was completed showing left mid and lower lung streaky atelectasis and right lower lobe opacities. Labs were completed and reviewed. CBC showing macrocytic anemia with hemoglobin of 12.9 and MCV of 106.4. Coagulation profile showing elevated PT of 14.2 and INR of 1.4. BMP showing hyponatremia with sodium of 126, hyperchloremia with chloride of 6.2, chloride of 99, bicarb of 10, and anion gap of 17 along with acute renal failure with BUN of 120, creatinine of 7.33, GFR of 7 with baseline creatinine around 1.7. Blood glucose was 157. Magnesium elevated at 3.4. Liver profile showing total bili of 19.5, AST of 143, ALT of 114, and alkaline phosphatase of 1136. Troponin was 0.027, and proBNP was 4310. Patient and patient's family at bedside requesting all treatment to be stopped as he recently met with his oncologist and was reportedly informed that even with chemotherapy he had less than 6 months to live. With the new findings of acute renal failure and liver failure patient and patient family wanting to initiate hospice care at this time and stopping all further treatment. Patient states he is a DNR and would like to remain a DNR and only wants medications needed for comfort measures only. He was admitted under our services with consult to [facility]. Patient did receive treatment for hyperkalemia in the emergency department and again later in the evening, however patient declining any further treatment or labs to be drawn this morning. Arrangements have been made and necessary home care supplies were delivered to family home per patient and family request for home hospice services. 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 Patient being discharged home with [facility] hospice services via EMS at this time. Physical exam: Vital signs reviewed and stable. General: Chronically ill-appearing, lethargic and drowsy Derm: Skin warm and dry, jaundiced. Head: Atraumatic, normocephalic and symmetric. Eyes: EOM's intact, no lid lag, and scleral icterus present Mouth: no lip lesions, mucus membranes moist Cardiovascular: regular rate and rhythm with normal S1S2, systolic murmur, positive posterior tibial pulses bilaterally, and cap refill < 2 seconds. Lungs: Respirations even, regular, and unlabored on room air. Lungs CTA bilat erally, no rhonchi, no rales, no wheezing, and no accessory muscle usage. Abdominal: soft, nontender to palpation, no guarding, no appreciable organomegaly Ext: ROM intact. No gross muscle atrophy, 2+ pitting bilateral lower extremity edema, no contractures Neuro: Speech clear, face symmetrical and CN II-XII grossly intact with no noted focal neuro deficits. Patient drowsy and slightly lethargic. Psych: Alert and oriented to person, place, time, and situation. Appropriate and pleasant affect. A total of 35 minutes of time were spent preparing this complex discharge summary. Pt was discharged on 12/17/2023 at 10:15 AM Patient was seen independently by Nurse Practitioner. This document was prepared using [employer] dictation software. 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 I reviewed the documentation as provided by the KIMMY above, who is the original author of this note. I agree with the documented assessment and plan, with the following changes: none Patient Condition at Discharge: Stable Plan - Discharge Summary Discharge Rx Participant: No New Discharge Prescriptions: No Action Famotidine [Pepcid] 20 mg PO DAILY #30 tablet Furosemide [Lasix] 20 mg PO DAILY #30 tab Varenicline [Chantix Starter Pack] 0.5 mg PO DIRECTED Spironolactone [Aldactone] 25 mg PO DAILY #30 tablet Discharge Medication List Famotidine [Pepcid] 20 mg PO DAILY #30 tablet 11/30/23 [Rx] Furosemide [Lasix] 20 mg PO DAILY #30 tab 11/30/23 [Rx] Spironolactone [Aldactone] 25 mg PO DAILY #30 tablet 11/30/23 [Rx] Varenicline [Chantix Starter Pack] 0.5 mg PO DIRECTED 12/16/23 [History] Follow up Appointment(s)/Referral(s): [facility] [[facility]-STAFF] - Activity/Diet/Wound Care/Special Instructions: Pt dc'd home with hospice at this time. Family and hospice nurse at bedside for teaching and discharge info. Discharge Disposition: HOME WITH HOSPICE
== END 2023-12-17 11:37 | disposition hospice, inpatient (51) | DRG 469 ==
LOC: EC 14:09 → 5NMEDONC 17:44
PROVIDERS: ADMIT Internal Medicine; ATTEND Internal Medicine
DX: N17.9 Acute kidney failure, unspecified (principal); Z51.5 Encounter for palliative care; C80.1 Malignant (primary) neoplasm, unspecified; C78.7 Secondary malignant neoplasm of liver and intrahepatic bile duct; C78.00 Secondary malignant neoplasm of unspecified lung; C79.51 Secondary malignant neoplasm of bone; E87.1 Hypo-osmolality and hyponatremia; D53.9 Nutritional anemia, unspecified; E87.20 Acidosis, unspecified; K70.40 Alcoholic hepatic failure without coma; E87.5 Hyperkalemia; Z66 Do not resuscitate; K70.30 Alcoholic cirrhosis of liver without ascites; F17.200 Nicotine dependence, unspecified, uncomplicated; E87.8 Other disorders of electrolyte and fluid balance, not elsewhere classified; Z79.899 Other long term (current) drug therapy
CPT/HCPCS: 36415; 71045; 80053; 83735; 83880; 84132; 84484; 85025; 85610; 85730; 93005; 94640; 96374; 96375; 99291